=== PATIENT | female | born 1965 | race Caucasian/White ===

== ENCOUNTER → 2016-11-03 | Outpatient (CLI) | payer BC ==
--- NOTE | 2016-11-04 07:42 | MM ---
Reason for exam: additional evaluation requested from prior study. Last mammogram was performed 6 months ago. History: Patient is postmenopausal and is nulliparous. Family history of breast cancer in mother at age 58. Reductions of both breasts, July 2005. Took hormonal contraceptives for 1 year beginning at age 35. Physical Findings: Nurse did not find any significant physical abnormalities on exam. MG 3D Diag Mammo W/Cad CHERYL Bilateral CC and MLO view(s) were taken. Prior study comparison: May 12, 2016, left breast MG 3d diag mammo w/cad LT. November 01, 2015, bilateral MG 3d screening mammo w/cad. The breast tissue is almost entirely fat. There is chronic nodularity bilaterally. No significant new findings when compared with previous films. These results were verbally communicated with the patient and result sheet given to the patient on 11/03/16. ASSESSMENT: Benign, BI-RAD 2 RECOMMENDATION: Routine screening mammogram of both breasts in 1 year.
--- NOTE | 2016-11-04 07:44 | USB ---
Reason for exam: follow-up at short interval from prior study. History: Patient is postmenopausal and is nulliparous. Family history of breast cancer in mother at age 58. Reductions of both breasts, July 2005. Took hormonal contraceptives for 1 year beginning at age 35. US Breast LT Left breast ultrasound includes all four quadrants, the retroareolar region and axilla. Finding demonstrates a 5 x 4 x 5mm oval, cystic lesion at 3 o'clock and a 3 x 2 x 4mm oval, mixed lesion at 4 o'clock. These results were verbally communicated with the patient and result sheet given to the patient on 11/03/16. ASSESSMENT: Probably benign, BI-RAD 3 RECOMMENDATION: Ultrasound of the left breast in 6 months.
== END | disposition home or self-care (01) ==
LOC: RADMAMWWP 14:48
PROVIDERS: ATTEND Family Medicine
DX: R92.8 Other abnormal and inconclusive findings on diagnostic imaging of breast (principal)
CPT/HCPCS: 76641; G0204; G0279

== ENCOUNTER → 2017-01-01 | Outpatient (CLI) | payer BC ==
--- NOTE | 2017-01-01 13:08 | XR ---
EXAMINATION TYPE: XR chest 2V DATE OF EXAM: 01/01/2017 COMPARISON: NONE HISTORY: Shortness of breath TECHNIQUE: Frontal and lateral views of the chest are obtained. FINDINGS: Scattered senescent parenchymal changes noted. Hyperinflation compatible with COPD. No evidence for infiltrate. No evidence for atelectasis. Heart size is stable. Mediastinal structures are stable and grossly unremarkable. No evidence for hilar prominence. Degenerative changes dorsal spine. IMPRESSION: 1. No evidence for acute pulmonary disease.
== END | disposition home or self-care (01) ==
LOC: RADXRMAIN 09:47
PROVIDERS: ATTEND Nurse Practitioner Family
DX: R06.09 Other forms of dyspnea (principal)
CPT/HCPCS: 71020

== ENCOUNTER → 2017-01-12 | Outpatient (CLI) | payer BC ==
--- NOTE | 2017-01-12 12:14 | ECHOF ---
Referral Reason:R00.2 palpitations MEASUREMENTS -------- HEIGHT: 165.1 cm WEIGHT: 111.1 kg BP: RVIDd: 2.7 cm (< 3.3) IVSd: 1.2 cm (0.6 - 1.1) LVIDd: 4.0 cm (3.9 - 5.3) LVPWd: 0.9 cm (0.6 - 1.1) IVSs: 1.3 cm LVIDs: 2.7 cm LVPWs: 1.2 cm LA Diam: 3.3 cm (2.7 - 3.8) LAESV Index (A-L): 26.96 ml/m Ao Diam: 2.9 cm (2.0 - 3.7) AV Cusp: 1.8 cm (1.5 - 2.6) MV EXCURSION: 15.400 mm (> 18.000) MV EF SLOPE: 72 mm/s (70 - 150) EPSS: 0.2 cm MV E Sampson: 0.58 m/s MV DecT: 279 ms MV A Sampson: 0.49 m/s MV E/A Ratio: 1.18 RAP: 5.00 mmHg RVSP: 15.06 mmHg FINDINGS -------- Sinus rhythm. Morbid Obesity There is mild concentric left ventricular hypertrophy. Overall left ventricular systolic function is normal with, an EF between 55 - 60 %. The right ventricle is normal in size. Normal LA size by volume 22+/-6 ml/m2. The right atrial size is normal. The aortic valve is trileaflet, and appears structurally normal. No aortic stenosis or regurgitation. [id number] mitral regurgitation is present. Mild tricuspid regurgitation present. There is no evidence of pulmonary hypertension. The right ventricular systolic pressure, as measured by Doppler, is 15.06mmHg. There is no pulmonic regurgitation present. The aortic root size is normal. There is no pericardial effusion. CONCLUSIONS -------- 1. There is mild concentric left ventricular hypertrophy. 2. Overall left ventricular systolic function is normal with, an EF between 55 - 60 %. 3. The aortic valve is trileaflet, and appears structurally normal. No aortic stenosis or regurgitation. 4. [id number] mitral regurgitation is present. 5. Mild tricuspid regurgitation present. 6. There is no evidence of pulmonary hypertension. 7. The right ventricular systolic pressure, as measured by Doppler, is 15.06mmHg. SCIENTIFIC LINGUIST: Debbie Stevenson RDCS
--- NOTE | 2017-01-13 12:00 | P.STRESS ---
- Stress Test Note Stress Test Results/Findings: Exam Performed: stress test Exam Date: 01/12/17 Reason for Exam: Chest Pain Height: 5 ft 6 in Weight: 111.13 kg Protocol: Jam Stage: 2 Duration of Exercise: 8:50 Resting Heart Rate: 70 Resting Blood Pressure: 124/91 Maximum Achieved Heart Rate: 144 Maximum Achieved Blood Pressure: 198/76 85% PMHR: 143 100% PMHR: 168 METS: 9.3 Technologist Comment: Stress Test Results/Findings: Resting EKG shows normal sinus rhythm with normal DE interval and QRS duration and normal ST-T abuse. This segment depression suggestive ischemia was noted. Arrhythmias are noted. Patient did not complain of any chest pain during the test. Conclusion this stress EKG is not suggestive ischemia. Since exercise tolerance is normal. No dysrhythmias were noted.
--- NOTE | 2017-01-14 10:16 | EST ---
Stress Test Results/Findings: Exam Performed: stress test Exam Date: 01/12/17 Reason for Exam: Chest Pain Height: 5 ft 6 in Weight: 111.13 kg Protocol: Jam Stage: 2 Duration of Exercise: 8:50 Resting Heart Rate: 70 Resting Blood Pressure: 124/91 Maximum Achieved Heart Rate: 144 Maximum Achieved Blood Pressure: 198/76 85% PMHR: 143 100% PMHR: 168 METS: 9.3 Technologist Comment: Stress Test Results/Findings: Resting EKG shows normal sinus rhythm with normal [place] interval and QRS duration and normal ST-T abuse. This segment depression suggestive ischemia was noted. Arrhythmias are noted. Patient did not complain of any chest pain during the test. Conclusion this stress EKG is not suggestive ischemia. Since exercise tolerance is normal. No dysrhythmias were noted. MTDD
== END | disposition home or self-care (01) ==
LOC: RADNMMAIN 10:42
PROVIDERS: ATTEND Family Medicine
DX: I08.1 Rheumatic disorders of both mitral and tricuspid valves (principal)
CPT/HCPCS: 93017; 93306

== ENCOUNTER 2017-10-08 08:00 | Day surgery (SDC) | payer BC ==
[2017-10-05 15:35] VITALS: BMI 42.7
[~2017-10-08 08:00] MED LIST: LACTATED RINGERS 1,000 ML IV SCH; LIDOCAINE 1% 20 ML VIAL (10MG/ML) FOR IV START INTRADERMA PRN
[2017-10-08 08:35] VITALS: RESP 16; TEMP 97.3
[2017-10-08] MEDS ORDERED: PROPOFOL 10 MG/ML 20 ML VIAL IV ONE (09:18)
[2017-10-08] MEDS ORDERED: LIDOCAINE 1% INJ 10MG/ML (20 ML MDV) ONE (09:18)
--- NOTE | 2017-10-08 09:20 | P.GSHP ---
History of Present Illness H&P Date: 10/08/17 Chief Complaint: GERD This a 52-year-old female who's had issues with GERD. Patient states he has reflux of acid and bile when she's in the supine position. She presents today for EGD. She is unable to sleep on the bed. She states she sleeps in a recliner. Past Medical History Past Medical History: Hyperlipidemia, Hypertension Additional Past Medical History / Comment(s): Hx kidney stones History of Any Multi-Drug Resistant Organisms: None Reported Past Surgical History: Breast Surgery Additional Past Surgical History / Comment(s): Br Reduction; colonoscopy Past Anesthesia/Blood Transfusion Reactions: Postoperative Nausea & Vomiting ( PONV) Smoking Status: Never smoker - Past Family History Mother Family Medical History: Cancer Medications and Allergies Home Medications Medication Instructions Recorded Confirmed Type Atorvastatin [Lipitor] 40 mg PO HS 11/02/15 10/08/17 History Losartan Potassium [Cozaar] 100 mg PO DAILY 11/02/15 10/08/17 History Multivitamins, Thera [Multivitamin] 1 tab PO DAILY 11/02/15 10/08/17 History Omeprazole 20 mg PO AC-BRKFST 10/05/17 10/08/17 History Allergies Allergy/AdvReac Type Severity Reaction Status Date / Time No Known Allergies Allergy Verified 10/08/17 08:35 Surgical - Exam Vital Signs Temp Pulse Resp BP Pulse Ox 97.3 F L 73 16 132/65 97 10/08/17 08:34 10/08/17 08:34 10/08/17 08:34 10/08/17 08:34 10/08/17 08:34 - General well developed - Eyes PERRL - ENT normal pinna - Neck no masses - Respiratory normal expansion - Cardiovascular Rhythm: regular - Abdomen Abdomen: soft, non tender Assessment and Plan Assessment: GERD. We'll perform EGD.
--- NOTE | 2017-10-08 09:31 | P.OP ---
Date of Procedure: 10/08/17 Preoperative Diagnosis: GERD Postoperative Diagnosis: Antral gastritis No evidence of hiatal hernia Mild esophagitis Procedure(s) Performed: EGD Anesthesia: MAC Surgeon: Sergey Crisostomo Pathology: other (Antrum) Condition: stable Disposition: PACU Description of Procedure: The patient's placed on the endoscopy table in the lateral position. She received IV sedation. The gastroscope placed oropharynx passed in the esophagus the scope was then placed through the pylorus first second portion of duodenum appeared normal. Scope was then brought back the antrum this appeared mildly inflamed. A biopsy was performed. The scope was then retroflexed and the remainder of the stomach appeared normal. There was no significant hiatal hernia. The GE junction was at 39 cm. The distal esophagus was mildly inflamed a biopsies performed. The proximal esophagus appeared normal. The scope was withdrawn for patient.
[2017-10-08 09:50] VITALS: BP 131/76; PULSE 70
== END 2017-10-08 10:13 | disposition home or self-care (01) ==
LOC: ORWHC2ENDO 08:00
PROVIDERS: ATTEND Surgery
DX: K29.50 Unspecified chronic gastritis without bleeding (principal); K21.0 Gastro-esophageal reflux disease with esophagitis; E78.5 Hyperlipidemia, unspecified; I10 Essential (primary) hypertension; Z87.442 Personal history of urinary calculi; Z79.899 Other long term (current) drug therapy
CPT/HCPCS: 88305; 43239; J2001; J2704

== ENCOUNTER → 2017-12-21 | Outpatient (CLI) | payer BC ==
--- NOTE | 2017-12-22 14:35 | MM ---
Reason for exam: screening (asymptomatic). Last mammogram was performed 1 year and 2 months ago. History: Patient is postmenopausal and is nulliparous. Family history of breast cancer in mother at age 58. Reductions of both breasts, July 2005. Took hormonal contraceptives for 1 year beginning at age 35. Physical Findings: A clinical breast exam by your physician is recommended on an annual basis and results should be correlated with mammographic findings. MG 3D Screening Mammo W/Cad Bilateral CC and MLO view(s) were taken. XCCL view(s) were taken of the right breast. CV view(s) were taken of the left breast. Prior study comparison: November 03, 2016, bilateral MG 3d diag mammo w/cad CHERYL. May 12, 2016, left breast MG 3d diag mammo w/cad LT. There are scattered fibroglandular densities. Finding #1: There is a 8 mm microlobulated round mass in the anterior, central position of the left breast. Finding #2: There are typically benign round calcifications in both breasts. There is a chronic nodularity bilaterally. New finding and increase in size, questionable posterior new lobulation since November 03, 2016. ASSESSMENT: Incomplete: need additional imaging evaluation, BI-RAD 0 RECOMMENDATION: Ultrasound of the left breast. [facility] will attempt to contact patient to return for ultrasound.
== END | disposition home or self-care (01) ==
LOC: RADMAMWWP 15:47
PROVIDERS: ATTEND Family Medicine
DX: Z12.31 Encounter for screening mammogram for malignant neoplasm of breast (principal)
CPT/HCPCS: 77063; 77067

== ENCOUNTER → 2017-12-25 | Outpatient (CLI) | payer BC ==
--- NOTE | 2017-12-25 07:59 | USB ---
Reason for exam: additional evaluation requested from abnormal screening. History: Patient is postmenopausal and is nulliparous. Family history of breast cancer in mother at age 58. Reductions of both breasts, July 2005. Took hormonal contraceptives for 1 year beginning at age 35. Physical Findings: Nurse did not find any significant physical abnormalities on exam. US Breast Workup LT Left complete breast ultrasound includes all four quadrants, the retroareolar region and axilla. Finding demonstrates a 0.6 x 0.6 x 0.7cm cystic lesion at 3 o'clock, increased through transmission. These results were verbally communicated with the patient and result sheet given to the patient on 12/25/17. ASSESSMENT: Benign, BI-RAD 2 RECOMMENDATION: Return to routine screening mammogram schedule for both breasts.
== END | disposition home or self-care (01) ==
LOC: RADUSWWP 06:50
PROVIDERS: ATTEND Family Medicine
DX: R92.8 Other abnormal and inconclusive findings on diagnostic imaging of breast (principal)

== ENCOUNTER → 2018-03-04 | Outpatient (CLI) | payer BC ==
--- NOTE | 2018-03-04 11:46 | USB ---
Reason for exam: clinical finding. History: Patient is postmenopausal and is nulliparous. Family history of breast cancer in mother at age 58. Reductions of both breasts, July 2005. Took hormonal contraceptives for 1 year beginning at age 35. Indicated problem(s): palpable abnormality in the left breast. Physical Findings: Nurse Summary: patient states palpable present 1 week, round, mobile 0.5cm (nurse ronan). US Breast LT Left complete breast ultrasound includes all four quadrants, the retroareolar region and axilla. Finding demonstrates a 1.4 x 0.7 x 0.3cm oval, vague, hypoechoic tissue at 11 o'clock, no cystic or solid lesion seen greater than 0.50cm. These results were verbally communicated with the patient and result sheet given to the patient on 03/04/18. ASSESSMENT: Benign, BI-RAD 2 RECOMMENDATION: Return to routine screening mammogram schedule for both breasts. Back on schedule. Manage patient on a clinical basis.
== END | disposition home or self-care (01) ==
LOC: RADUSWWP 09:24
PROVIDERS: ATTEND Family Medicine
DX: N63.22 Unspecified lump in the left breast, upper inner quadrant (principal)

== ENCOUNTER 2018-03-20 09:28 | Observation (INO) | payer BC ==
[2018-03-20] MEDS ORDERED: ASPIRIN 81 MG PO STA (09:40)
[2018-03-20] MEDS ORDERED: NITROGLYCERIN OINT 1 INCH/GM PACKET TOPICAL STA (09:40)
--- NOTE | 2018-03-20 09:43 | ED ---
General Adult HPI - General Chief complaint: Chest Pain Stated complaint: Chest pain Time Seen by Provider: 03/20/18 09:30 Source: patient, RN notes reviewed Mode of arrival: wheelchair Limitations: no limitations - History of Present Illness Initial comments: This is a 52-year-old female with past history significant for high blood pressure and high cholesterol. Patient states she woke up with a pain in her chest she states is centrally located also is made her short of breath and nauseated. Patient states the pain does not radiate anywhere but she's not had a pain like this in the past. Patient states she has a strong family history of heart disease her father at 52 years old from heart attack. Patient denies any palpitations. Patient denies any diaphoretic episodes. Patient denies any lightheadedness dizziness or near-syncopal episode. Patient denies any numbness or weakness. Patient states she has no abdominal pain she denies any vomiting or diarrhea. Patient denies any recent fever chills. Patient denies any leg swelling or calf tenderness. - Related Data Home Medications Medication Instructions Recorded Confirmed Atorvastatin [Lipitor] 40 mg PO HS 11/02/15 10/08/17 Losartan Potassium [Cozaar] 100 mg PO DAILY 11/02/15 10/08/17 Multivitamins, Thera [Multivitamin] 1 tab PO DAILY 11/02/15 10/08/17 Omeprazole 20 mg PO AC-BRKFST 10/05/17 10/08/17 Allergies Allergy/AdvReac Type Severity Reaction Status Date / Time No Known Allergies Allergy Verified 03/20/18 09:32 Review of Systems ROS Statement: Those systems with pertinent positive or pertinent negative responses have been documented in the HPI. ROS Other: All systems not noted in ROS Statement are negative. Past Medical History Past Medical History: Hyperlipidemia, Hypertension Additional Past Medical History / Comment(s): Hx kidney stones History of Any Multi-Drug Resistant Organisms: None Reported Past Surgical History: Breast Surgery Additional Past Surgical History / Comment(s): Br Reduction; colonoscopy Past Anesthesia/Blood Transfusion Reactions: Postoperative Nausea & Vomiting ( PONV) Past Psychological History: No Psychological Hx Reported Smoking Status: Never smoker Past Alcohol Use History: None Reported Past Drug Use History: None Reported - Past Family History Mother Family Medical History: Cancer General Exam - General Exam Comments Initial Comments: GENERAL: Patient is well-developed and well-nourished. Patient is nontoxic and well- hydrated and is in mild distress. ENT: Neck is soft and supple. No significant lymphadenopathy is noted. Oropharynx is clear. Moist mucous membranes. Neck has full range of motion without eliciting any pain. EYES: The sclera were anicteric and conjunctiva were pink and moist. Extraocular movements were intact and pupils were equal round and reactive to light. Eyelids were unremarkable. PULMONARY: Unlabored respirations. Good breath sounds bilaterally. No audible rales rhonchi or wheezing was noted. CARDIOVASCULAR: There is a regular rate and rhythm without any murmurs gallops or rubs. ABDOMEN: Soft and nontender with normal bowel sounds. No palpable organomegaly was noted. There is no palpable pulsatile mass. SKIN: Skin is clear with no lesions or rashes and otherwise unremarkable. NEUROLOGIC: Patient is alert and oriented x3. Cranial nerves II through XII are grossly intact. Motor and sensory are also intact. Normal speech, volume and content. Symmetrical smile. MUSCULOSKELETAL: Normal extremities with adequate strength and full range of motion. No lower extremity swelling or edema. No calf tenderness. LYMPHATICS: No significant lymphadenopathy is noted PSYCHIATRIC: Normal psychiatric evaluation. Limitations: no limitations Course Vital Signs 03/20/18 03/20/18 03/20/18 09:30 09:52 10:25 Temperature 98.3 F Pulse Rate 59 L 57 L 70 Respiratory 20 22 20 Rate Blood Pressure 178/83 143/78 121/71 O2 Sat by Pulse 99 100 99 Oximetry 03/20/18 10:53 Temperature Pulse Rate 65 Respiratory 20 Rate Blood Pressure 129/72 O2 Sat by Pulse 98 Oximetry Medical Decision Making - Medical Decision Making EKG shows sinus bradycardia 50 bpm MN interval is on a 68 QRSs 80 QT interval 36 QTC is 378. Patient's EKG shows no ST segment elevation or depression Chest x-ray shows no acute abnormality. Patient stated the Nitropaste significantly reduced her symptoms. I started the patient on heparin because of the unstable angina. I spoke with [facility] hospitalist agreed to admit the patient admitted the patient I continue the heparin Nitropaste and aspirin on the floor. I consult to cardiology. - Lab Data Result diagrams: 03/20/18 09:47 03/20/18 09:47 Lab Results 10/06/18 10/06/18 10/06/18 Range/Units 09:47 09:47 09:47 WBC 7.9 (3.8-10.6) k/uL RBC 4.99 (3.80-5.40) m/uL Hgb 14.7 (11.4-16.0) gm/dL Hct 43.4 (34.0-46.0) % MCV 87.0 (80.0-100.0) fL MCH 29.4 (25.0-35.0) pg MCHC 33.8 (31.0-37.0) g/dL RDW 12.8 (11.5-15.5) % Plt Count 244 (150-450) k/uL Neutrophils % 71 % Lymphocytes % 18 % Monocytes % 6 % Eosinophils % 3 % Basophils % 0 % Neutrophils # 5.6 (1.3-7.7) k/uL Lymphocytes # 1.4 (1.0-4.8) k/uL Monocytes # 0.5 (0-1.0) k/uL Eosinophils # 0.2 (0-0.7) k/uL Basophils # 0.0 (0-0.2) k/uL PT (9.0-12.0) sec INR (<1.2) APTT (22.0-30.0) sec Sodium 144 (137-145) mmol/L Potassium 3.7 (3.5-5.1) mmol/L Chloride 103 (98-107) mmol/L Carbon Dioxide 33 H (22-30) mmol/L Anion Gap 8 mmol/L BUN 13 (7-17) mg/dL Creatinine 0.93 (0.52-1.04) mg/dL Est GFR (CKD-EPI)AfAm 82 (>60 ml/min/1.73 sqM) Est GFR (CKD-EPI)NonAf 71 (>60 ml/min/1.73 sqM) Glucose 102 H (74-99) mg/dL Calcium 9.7 (8.4-10.2) mg/dL Magnesium 1.8 (1.6-2.3) mg/dL Total Bilirubin 0.9 (0.2-1.3) mg/dL AST 53 H (14-36) U/L ALT 56 H (9-52) U/L Alkaline Phosphatase 109 (38-126) U/L Total Creatine Kinase 144 H (30-135) U/L CK-MB (CK-2) 1.9 (0.0-2.4) ng/mL CK-MB (CK-2) Rel Index 1.3 Troponin I <0.012 (0.000-0.034) ng/mL Total Protein 7.4 (6.3-8.2) g/dL Albumin 4.2 (3.5-5.0) g/dL 03/20/18 Range/Units 09:47 WBC (3.8-10.6) k/uL RBC (3.80-5.40) m/uL Hgb (11.4-16.0) gm/dL Hct (34.0-46.0) % MCV (80.0-100.0) fL MCH (25.0-35.0) pg MCHC (31.0-37.0) g/dL RDW (11.5-15.5) % Plt Count (150-450) k/uL Neutrophils % % Lymphocytes % % Monocytes % % Eosinophils % % Basophils % % Neutrophils # (1.3-7.7) k/uL Lymphocytes # (1.0-4.8) k/uL Monocytes # (0-1.0) k/uL Eosinophils # (0-0.7) k/uL Basophils # (0-0.2) k/uL PT 10.1 (9.0-12.0) sec INR 1.0 (<1.2) APTT 23.6 (22.0-30.0) sec Sodium (137-145) mmol/L Potassium (3.5-5.1) mmol/L Chloride (98-107) mmol/L Carbon Dioxide (22-30) mmol/L Anion Gap mmol/L BUN (7-17) mg/dL Creatinine (0.52-1.04) mg/dL Est GFR (CKD-EPI)AfAm (>60 ml/min/1.73 sqM) Est GFR (CKD-EPI)NonAf (>60 ml/min/1.73 sqM) Glucose (74-99) mg/dL Calcium (8.4-10.2) mg/dL Magnesium (1.6-2.3) mg/dL Total Bilirubin (0.2-1.3) mg/dL AST (14-36) U/L ALT (9-52) U/L Alkaline Phosphatase (38-126) U/L Total Creatine Kinase (30-135) U/L CK-MB (CK-2) (0.0-2.4) ng/mL CK-MB (CK-2) Rel Index Troponin I (0.000-0.034) ng/mL Total Protein (6.3-8.2) g/dL Albumin (3.5-5.0) g/dL Critical Care Time Critical Care Time: Yes Total Critical Care Time: 35 Disposition Clinical Impression: Unstable angina pectoris Disposition: ADMITTED IP TO THIS HOSP Is patient prescribed a controlled substance at d/c from ED?: No Referrals: Judith Shepard MD [Primary Care Provider] - 1-2 days Time of Disposition: 11:00
[2018-03-20 10:01] LABS: Basophils % (A) 0 %; Eosinophils # (A) 0.2 k/uL (0-0.7); Eosinophils % (A) 3 %; HCT 43.4 % (34.0-46.0); HGB 14.7 gm/dL (11.4-16.0); Lymphocytes # (A) 1.4 k/uL (1.0-4.8); Lymphocytes % (A) 18 %; MCH 29.4 pg (25.0-35.0); MCHC 33.8 g/dL (31.0-37.0); Mean Platelet Volume 7.6; Monocytes # (A) 0.5 k/uL (0-1.0); Monocytes % (A) 6 %; Neutrophils # (A) 5.6 k/uL (1.3-7.7); Neutrophils % (A) 71 %; Platelet Count 244 k/uL (150-450); RBC 4.99 m/uL (3.80-5.40); RDW 12.8 % (11.5-15.5); WBC 7.9 k/uL (3.8-10.6)
[2018-03-20 10:11] LABS: Albumin 4.2 g/dL (3.5-5.0); Calcium 9.7 mg/dL (8.4-10.2); Magnesium 1.8 mg/dL (1.6-2.3); Potassium 3.7 mmol/L (3.5-5.1); Total Bilirubin 0.9 mg/dL (0.2-1.3); Total Protein 7.4 g/dL (6.3-8.2)
[2018-03-20] MEDS ORDERED: HEPARIN SODIUM,PORCINE 5,000 UNIT/ML 1 ML VIAL IV ONE (10:24)
--- NOTE | 2018-03-20 10:28 | XR ---
EXAMINATION TYPE: XR chest 2V DATE OF EXAM: 03/20/2018 HISTORY: Chest Pain. REFERENCE: Previous study dated 01/01/2017. FINDINGS: Heart size upper limits of normal. The lungs are clear. Pleural spaces are clear. IMPRESSION: BORDERLINE CARDIOMEGALY.
[2018-03-20 10:29] LABS: Creatine Kinase 144 U/L (30-135)
[2018-03-20 10:42] LABS: Creatine Kinase MB 1.9 ng/mL (0.0-2.4); Troponin I <0.012 ng/mL (0.000-0.034)
[2018-03-20 10:46] LABS: Partial Thromboplastin Time 23.6 sec (22.0-30.0); Prothrombin Time 10.1 sec (9.0-12.0)
[2018-03-20] MEDS: HEPARIN SOD,PORK IN 0.45% NACL 25,000 UNIT in 0.45% NACL 1 500ML.BAG IV SCH (10:55)
[2018-03-20] MEDS ORDERED: NITROGLYCERIN SL TABS 0.4 MG TAB SUBLINGUAL PRN (11:01)
[2018-03-20] MEDS ORDERED: NAPROXEN 250 MG TAB PO PRN (13:35)
[2018-03-20] MEDS: ONDANSETRON 4 MG/2 ML VIAL IVP PRN ×2 (14:58→20:05)
[2018-03-20] MEDS ORDERED: ACETAMINOPHEN TAB 325 MG TAB PO PRN (14:59)
[2018-03-20] MEDS: NITROGLYCERIN OINT 1 INCH/GM PACKET TOPICAL SCH ×2 (15:01→18:25)
[2018-03-20 15:50] LABS: Creatine Kinase 105 U/L (30-135)
[2018-03-20 16:02] LABS: Creatine Kinase MB 1.3 ng/mL (0.0-2.4); Troponin I <0.012 ng/mL (0.000-0.034)
[2018-03-20] MEDS ORDERED: ATORVASTATIN 40 MG TAB PO SCH (21:00)
--- NOTE | 2018-03-20 22:11 | HP ---
HISTORY AND PHYSICAL DATE OF SERVICE: 03/20/2018 CHIEF COMPLAINT: Chest pain. HISTORY OF PRESENT ILLNESS: This 52-year-old woman with a past medical history of multiple medical problems include hypertension, hyperlipidemia, history of kidney stones, history of breast surgery being followed by Dr. Judith Shepard in the outpatient setting also had a strong family history of heart disease. The patient's apparently father had coronary disease at age of 52. Currently the patient was admitted with complaints of sudden onset severe chest pressure, felt in the anterior part and also radiated to the back. The patient denied any diaphoretic episodes. No history of lightheadedness or nausea, vomiting, also diarrhea. The patient came to [facility] and was admitted for further evaluation treatment. Cardiology evaluation in progress at this time. An EKG done at the ER showed sinus bradycardia. Heart rate is [address] changes. Otherwise, troponins are negative at this time. There is no history of fever, rigors. No headache, loss of consciousness, seizures. PAST MEDICAL HISTORY: Hypertension, hyperlipidemia, history of kidney stones, breast surgery. MEDICATIONS: Prior to admission include home medications are: 1. Aleve 440 mg p.o. b.i.d. 2. Calcium 600 mg p.o. daily. 3. Omeprazole 20 mg with breakfast. 4. Multivitamins 1 p.o. daily. 5. Cozaar 100 mg. 6. Lipitor 40 mg q.h.s. ALLERGIES: None. FAMILY HISTORY: History of cancer in the family. SOCIAL HISTORY: No history of smoking or alcohol intake. REVIEW OF SYSTEMS: ENT: No diminished hearing or vision. CARDIOVASCULAR: As mentioned earlier. GI: No nausea. : No dysuria. NERVOUS SYSTEM: No numbness or weakness. ALLERGY/IMMUNOLOGY: No history of asthma or hayfever. MUSCULOSKELETAL: As mentioned earlier. HEMATOLOGY/ONCOLOGY: No history of anemia. ENDOCRINE: No history of diabetes, hypothyroidism. CONSTITUTIONAL: As mentioned earlier. DERMATOLOGY: Negative. RHEUMATOLOGY: Negative. PSYCHIATRY: As mentioned earlier. PHYSICAL EXAMINATION: Alert, oriented x3. Pulse 67, blood pressure 158/90, respiration 18, temperature 98.2, pulse ox 98% on 2 L. HEENT: Conjunctivae normal. Oral mucosa moist. Neck is no jugular venous distention. No carotid bruit. No lymph node enlargement. CARDIOVASCULAR: S1, S2 muffled. RESPIRATORY: Breath sounds diminished in the bases. No rhonchi, no crackles. ABDOMEN: Soft, obese, nontender. No mass palpable. LEGS: No edema, no swelling. NERVOUS SYSTEM: Higher functions as mentioned. Moves all 4 limbs. No focal motor signs. LYMPHATICS: No lymphadenopathy in the neck, axillae, groin. SKIN: No ulcer, rash or bleeding. LAB STUDIES: WBC 11.7, hemoglobin 14.7, sodium 44, potassium 3.7, AST is 53, ALT is 56, alkaline phosphatase is 144. ASSESSMENT: 1. Chest pain, possible unstable angina. 2. Increased AST and ALT, possibly hepatitis. 3. Obesity with body mass of 45.5. 4. Family history of coronary artery disease. 5. Hypertension. 6. Hyperlipidemia. 7. History of nephrolithiasis. 8. History of breast surgery. RECOMMENDATIONS AND DISCUSSION: This 52-year-old woman who presented with multiple complex medical issues, monitor the patient closely. Continue the current management and symptomatic treatment. Unstable angina protocol. Otherwise I would recommend Cardiology consultation, possible cardiac cath versus stress test. Prognosis guarded because of multiple complex medical issues. Further recommendations to follow. Copy of dictation forwarded to Dr. Judith Shepard who is the primary physician. MMODL / IJN: [id number] / MTDD
[2018-03-20 22:46] LABS: Creatine Kinase 96 U/L (30-135)
--- NOTE | 2018-03-20 22:47 | CONS ---
CONSULTATION CHIEF COMPLAINT: Chest pain. Chio is a 52-year-old lady who works as a is/it project manager, has history of hypertension and dyslipidemia who presented to hospital complaining of chest pain. She states that she was at her work today, went home, had episodes of what she describes as chest pressure that radiated to her back associated with some nausea. It is moderate intensity came on at rest without clear-cut relieving or exacerbating factors. EKG does not reveal ischemic changes. The first set of troponin is negative. White cell count is normal at 7.9. There is no prior cardiac history. Her coronary risk/social in the form of hypertension, dyslipidemia, and strong family history of premature coronary artery disease. The patient's chest discomfort improved with the nitroglycerin paste. PAST MEDICAL HISTORY: Significant for hypertension and dyslipidemia. MEDICATIONS: Include Cozaar 100 daily, Lipitor 40 daily, omeprazole. ALLERGIES: No known drug allergies. FAMILY HISTORY: Significant for premature coronary artery disease. SOCIAL HISTORY: Negative for current smoking, EtOH abuse, or drug abuse. REVIEW OF SYSTEMS: HEENT is unremarkable. CARDIAC: As described above. RESPIRATORY: Negative. GI: Negative. GENITOURINARY: Negative. ALLERGY/IMMUNOLOGY: Negative. SKIN: Negative. MUSCULOSKELETAL: Significant for arthritis. PSYCHOSOCIAL: Negative. ENDOCRINE: Negative. HEMATOLOGIC: Negative. CONSTITUTIONAL: Negative. ONCOLOGICAL: Negative. The rest of the system review is not relevant. EXAM: Patient is comfortable at rest. Vital signs are stable. There is no jugular venous distention. Chest exam reveals good air entry bilaterally. Heart exam reveals first and second heart sounds. No gallop. No murmur. No rub. Abdomen is soft, nontender. Exam of extremities did not reveal any edema. Peripheral pulses are felt. EKG does not reveal ischemic changes. LABS: Have been reviewed as well as the chest x-ray. ASSESSMENT: Unstable angina. PLAN: Patient's chest discomfort is suggestive of angina, has strong and multiple coronary risk factors. I am going to schedule her for a cardiac catheterization on Thursday. In the meantime, treat her with aspirin, nitrates, beta-blockers and intravenous heparin. MMODL / IJN: [id number] /
[2018-03-20 22:57] LABS: Creatine Kinase MB 1.4 ng/mL (0.0-2.4); Troponin I <0.012 ng/mL (0.000-0.034)
[2018-03-21] MEDS: NITROGLYCERIN OINT 1 INCH/GM PACKET TOPICAL SCH ×4 (04:04→17:44)
[2018-03-21 05:47] LABS: Cholesterol 149 mg/dL (<200); HDL Cholesterol 58 mg/dL (40-60); LDL Cholesterol,Calculated 75 mg/dL (0-99); Triglycerides 78 mg/dL (<150)
[2018-03-21] MEDS: HEPARIN SOD,PORK IN 0.45% NACL 25,000 UNIT in 0.45% NACL 1 500ML.BAG IV SCH (06:22)
[2018-03-21] MEDS ORDERED: ATORVASTATIN 80 MG TAB PO STA (07:50)
[2018-03-21] MEDS ORDERED: ASPIRIN 325 MG TAB PO STA (07:50)
[2018-03-21] MEDS ORDERED: ALPRAZolam 0.5 MG TAB PO PRN (07:50)
[2018-03-21] MEDS ORDERED: ALPRAZolam 0.25 MG TAB PO PRN (07:50)
[2018-03-21] MEDS ORDERED: ASPIRIN 325 MG TAB PO SCH (09:00)
[2018-03-21] MEDS: CALCIUM CARBONATE 500 MG CHEWABLE PO SCH (09:04)
[2018-03-21] MEDS: PANTOPRAZOLE 40 MG TABLET PO SCH (09:04)
[2018-03-21] MEDS: LOSARTAN 50 MG TAB PO SCH (09:04)
--- NOTE | 2018-03-21 09:10 | CONS ---
CONSULTATION Chio is a 52-year-old lady who is admitted to the hospital with unstable angina. This morning she is doing well. Has remained chest pain-free. Cardiac enzymes have been negative. EKG did not reveal any ischemic changes. Her LDL cholesterol is 75. Her coronary risk factors are in the form of hypertension and dyslipidemia. There are no known drug allergies. FAMILY HISTORY: Negative for premature coronary artery disease. SOCIAL HISTORY: Negative for smoking, EtOH abuse, or drug abuse. EXAM: She is comfortable at rest. Vital signs are stable. There is no jugular venous distention. Carotid upstroke is normal. There is no bruit. Chest exam reveals good air entry bilaterally. Heart exam reveals first and second heart sounds. No gallop. Abdomen is soft, nontender. Exam of extremities did not reveal edema. Peripheral pulses are felt. ASSESSMENT: Unstable angina. PLAN: Patient will undergo cardiac catheterization by me tomorrow and we will decide on further course of action. She understands risks, benefits and alternatives. MMODL / IJN: [id number] /
--- NOTE | 2018-03-21 10:11 | ECHOF ---
Referral Reason:chest pain MEASUREMENTS -------- HEIGHT: 165.1 cm WEIGHT: 127.5 kg BP: RVIDd: 2.9 cm (< 3.3) IVSd: 1.1 cm (0.6 - 1.1) LVIDd: 4.7 cm (3.9 - 5.3) LVPWd: 1.2 cm (0.6 - 1.1) IVSs: 1.3 cm LVIDs: 3.4 cm LVPWs: 1.1 cm LA Diam: 3.5 cm (2.7 - 3.8) Ao Diam: 2.6 cm (2.0 - 3.7) AV Cusp: 1.8 cm (1.5 - 2.6) LA Diam: 4.1 cm (2.7 - 3.8) MV EXCURSION: 17.701 mm (> 18.000) MV EF SLOPE: 113 mm/s (70 - 150) EPSS: 0.3 cm MV E Sampson: 0.64 m/s MV DecT: 155 ms MV A Sampson: 0.59 m/s MV E/A Ratio: 1.07 RAP: 5.00 mmHg RVSP: 28.71 mmHg FINDINGS -------- Sinus rhythm. Morbid Obesity This was a techncally difficult study with suboptimal views, , Lumason utilized for enhancement of im ages. The left ventricular size is normal. There is borderline concentric left ventricular hypertrophy. Overall left ventricular systolic function is normal with, an EF between 55 - 60 %. The right ventricle is normal in size. The left atrial size is normal. The right atrial size is normal. 5.0mg OF Lumason UTLIZED: 2 OR MORE WALL SEGMENTS NOT VISUALIZED. The aortic valve is trileaflet, and appears structurally normal. No aortic stenosis or regurgitation. Mild mitral annular calcification present. Mild mitral regurgitation is present. Mild tricuspid regurgitation present. There is no evidence of pulmonary hypertension. The right v entricular systolic pressure, as measured by Doppler, is 28.71mmHg. There is no pulmonic regurgitation present. The aortic root size is normal. There is no pericardial effusion. CONCLUSIONS -------- 1. Morbid Obesity 2. This was a techncally difficult study with suboptimal views, , Lumason utilized for enhancement of images. 3. The left ventricular size is normal. 4. There is borderline concentric left ventricular hypertrophy. 5. Overall left ventricular systolic function is normal with, an EF between 55 - 60 %. 6. The right ventricle is normal in size. 7. The left atrial size is normal. 8. The right atrial size is normal. 9. 5.0mg OF Lumason UTLIZED: 2 OR MORE WALL SEGMENTS NOT VISUALIZED. 10. The aortic valve is trileaflet, and appears structurally normal. No aortic stenosis or regurgitat ion. 11. Mild mitral annular calcification present. 12. Mild mitral regurgitation is present. 13. Mild tricuspid regurgitation present. 14. There is no evidence of pulmonary hypertension. 15. The right ventricular systolic pressure, as measured by Doppler, is 28.71mmHg. 16. There is no pulmonic regurgitation present. 17. The aortic root size is normal. 18. There is no pericardial effusion. FUEL AGENT: Debbie Stevenson RDCS
[2018-03-21] MEDS: MULTIVITAMINS, THERA 1 EACH TAB PO SCH (11:51)
[2018-03-21 16:43] LABS: Appearance,Urine Clear (Clear); Bilirubin,Urine Negative (Negative); Blood,Urine Negative (Negative); Color,Urine Yellow; Glucose,Urine (UA) Negative (Negative); Ketones,Urine Negative (Negative); Leukocyte Esterase,Urine Negative (Negative); Nitrite,Urine Negative (Negative); PH, Urine 5.5 (5.0-8.0); Protein,Urine Negative (Negative); Specific Gravity,Urine 1.016 (1.001-1.035); Urobilinogen,Urine <2.0 mg/dL (<2.0)
--- NOTE | 2018-03-21 18:13 | PN ---
PROGRESS NOTE DATE OF SERVICE: 03/21/2018 This 52-year-old woman was admitted with chest pain, had significant family history. Cardiology saw the patient and recommended cardiac catheterization. No chest pain. No palpitations. No fever. PHYSICAL EXAM: Alert and oriented x3. Pulse 67, blood pressure 160/84, respiration 18, temperature 97.8, pulse ox 94% on room air. HEENT: Conjunctivae normal. Oral mucosa moist. Neck is no jugular venous distention. No carotid bruit. No lymph node enlargement. CARDIOVASCULAR: S1, S2 muffled. RESPIRATORY: Breath sounds diminished in the bases. No rhonchi, no crackles. ABDOMEN: Soft, nontender. No mass palpable. LEGS: No edema, no swelling. NERVOUS SYSTEM: Higher functions as mentioned earlier. Moves all four limbs. No focal motor deficits. LYMPHATICS: No lymphadenopathy in the neck, axillae, groin. SKIN: No ulcer, rash or bleeding. LABS: At this time shows APTT 60.8. Troponins are negative. AST is 53 and ALT 56. ASSESSMENT: 1. Chest pain, possible unstable angina. 2. Increased AST and ALT, possibly hepatitis. 3. Obesity with body mass 45.5. 4. Family history of coronary artery disease. 5. Hypertension. 6. Hyperlipidemia. 7. History of nephrolithiasis. 8. History of breast surgery. RECOMMENDATIONS AND DISCUSSION: I recommend to continue current management, continue monitoring, symptomatic treatment. Otherwise at this time I recommend repeat labs and cardiology evaluation, possible cardiac cath. Guarded prognosis. Further recommendations to follow. MMODL / IJN: [id number] /
[2018-03-21] MEDS ORDERED: SODIUM CHLORIDE 0.9% 1,000 ML in EMPTY BAG 1 BAG IV ONE (21:00)
[2018-03-22] MEDS: NITROGLYCERIN OINT 1 INCH/GM PACKET TOPICAL SCH ×4 (01:30→18:19)
[2018-03-22] MEDS ORDERED: ATORVASTATIN 80 MG TAB PO STA (06:22)
[2018-03-22] MEDS: LOSARTAN 50 MG TAB PO SCH (06:27)
[2018-03-22] MEDS: ASPIRIN 325 MG TAB PO SCH (07:38)
[2018-03-22 08:24] LABS: Basophils % (A) 1 %; Eosinophils # (A) 0.2 k/uL (0-0.7); Eosinophils % (A) 4 %; HCT 36.9 % (34.0-46.0); HGB 12.4 gm/dL (11.4-16.0); Lymphocytes # (A) 1.6 k/uL (1.0-4.8); Lymphocytes % (A) 30 %; MCH 29.6 pg (25.0-35.0); MCHC 33.6 g/dL (31.0-37.0); MCV 88.2 fL (80.0-100.0); Mean Platelet Volume 7.7; Monocytes # (A) 0.3 k/uL (0-1.0); Monocytes % (A) 6 %; Neutrophils # (A) 3.1 k/uL (1.3-7.7); Neutrophils % (A) 57 %; Platelet Count 215 k/uL (150-450); RBC 4.18 m/uL (3.80-5.40); RDW 12.8 % (11.5-15.5); WBC 5.4 k/uL (3.8-10.6)
[2018-03-22] MEDS ORDERED: IV FLUID CONTINUATION 1,000 ML IV ONE (08:40)
[2018-03-22 08:44] LABS: ALT 212 U/L (9-52); AST 94 U/L (14-36); Albumin 3.3 g/dL (3.5-5.0); Alkaline Phosphatase 138 U/L (38-126); Anion Gap 5 mmol/L; Blood Urea Nitrogen 6 mg/dL (7-17); Calcium 8.6 mg/dL (8.4-10.2); Carbon Dioxide 28 mmol/L (22-30); Chloride 110 mmol/L (98-107); Glucose 95 mg/dL (74-99); Sodium 143 mmol/L (137-145); Total Bilirubin 0.7 mg/dL (0.2-1.3)
[2018-03-22] MEDS ORDERED: fentaNYL (PF) 50 MCG/ML 2 ML AMP ONE (08:44)
[2018-03-22] MEDS ORDERED: LIDOCAINE 1% INJ 10MG/ML (20 ML MDV) ONE (08:44)
[2018-03-22] MEDS ORDERED: MIDAZOLAM 2 MG/2 ML VIAL ONE (08:44)
[2018-03-22] MEDS ORDERED: LIDOCAINE 1% INJ 10MG/ML (20 ML MDV) SQ ONE (08:48)
[2018-03-22] MEDS ORDERED: MIDAZOLAM 2 MG/2 ML VIAL IV ONE (08:48)
[2018-03-22] MEDS ORDERED: fentaNYL (PF) 50 MCG/ML 2 ML AMP IV ONE (08:48)
[2018-03-22] MEDS ORDERED: IOPAMIDOL-370 125ML BTL INJ ONE (08:58)
[2018-03-22] MEDS ORDERED: RX INFO: IV CONTRAST WAS GIVEN 1 EACH MISC MISCELLANE PRN (09:10)
[2018-03-22] MEDS: SODIUM CHLORIDE 0.9% 1,000 ML IV SCH (09:15)
[2018-03-22] MEDS: CALCIUM CARBONATE 500 MG CHEWABLE PO SCH (10:01)
[2018-03-22] MEDS: PANTOPRAZOLE 40 MG TABLET PO SCH (10:01)
--- NOTE | 2018-03-22 10:38 | CC ---
CARDIAC CATHETERIZATION REPORT INDICATION: Unstable angina. PROCEDURE NOTE: After obtaining informed consent, left heart catheterization and coronary angiogram are performed via right femoral artery using standard Cristhian catheters. Patient tolerated the procedure well without any obvious immediate complications. A femoral angiogram was performed and Angio-Seal was deployed for hemostasis. Patient received moderate conscious sedation. Total sedation time was 15 minutes. FINDINGS: 1. HEMODYNAMICS: Left ventricular end-diastolic pressure is 8 to 12 mm. There is no significant gradient across the aortic valve. 2. LEFT VENTRICULOGRAM: Left ventriculogram is not performed. 3. ANGIOGRAPHIC DATA: 4. LEFT MAIN CORONARY ARTERY: Left main coronary artery is a normal-sized vessel and is free of stenosis. Divides into left anterior descending coronary artery and circumflex coronary artery. LAD and its branches, circumflex coronary artery and its branches are free of significant stenosis. Circumflex is a nondominant vessel. Right coronary artery is a large dominant vessel and is free of significant stenosis. CONCLUSION: 1. Normal coronary arteries. 2. Normal left ventricular end-diastolic pressure. PLAN: Patient's chest discomfort is probably noncardiac in origin. Her management is going to be in the form of risk-factor modifications. The patient is having intermittent episodes of sinus bradycardia. I will advise her to lose weight, exercise regularly and if she is on any AV eva blockers, I am going to stop it. MMODL / IJN: [id number] /
[2018-03-22] MEDS ORDERED: HYDROmorphone 1 MG/ML 1 ML SYRINGE IVP PRN (10:55)
[2018-03-22 11:37] LABS: Basophils % (A) 0 %; Eosinophils # (A) 0.2 k/uL (0-0.7); Eosinophils % (A) 3 %; HCT 38.7 % (34.0-46.0); HGB 13.2 gm/dL (11.4-16.0); Lymphocytes % (A) 32 %; MCH 29.5 pg (25.0-35.0); MCHC 34.1 g/dL (31.0-37.0); MCV 86.5 fL (80.0-100.0); Mean Platelet Volume 7.1; Monocytes # (A) 0.4 k/uL (0-1.0); Monocytes % (A) 6 %; Neutrophils # (A) 3.4 k/uL (1.3-7.7); Neutrophils % (A) 56 %; Platelet Count 217 k/uL (150-450); RBC 4.47 m/uL (3.80-5.40); RDW 12.8 % (11.5-15.5); WBC 6.2 k/uL (3.8-10.6)
--- NOTE | 2018-03-22 11:42 | XR ---
EXAMINATION TYPE: XR chest 1V portable DATE OF EXAM: 03/22/2018 COMPARISON: 03/20/2018 HISTORY: Chest pain. TECHNIQUE: Single frontal view of the chest is obtained. FINDINGS: There is no focal air space opacity, pleural effusion, or pneumothorax seen. The cardiac silhouette size is enlarged. Chronic obscuration of the left costophrenic angle is likely partially r elated to copious overlying soft tissues and a component of chronic atelectasis as this is linear in orientation on the prior. The osseous structures are intact. IMPRESSION: Probable chronic left basilar subsegmental atelectasis and cardiomegaly. No acute cardio pulmonary process.
[2018-03-22 11:45] LABS: Anion Gap 7 mmol/L; Blood Urea Nitrogen 5 mg/dL (7-17); Carbon Dioxide 26 mmol/L (22-30); Chloride 109 mmol/L (98-107); Glucose 93 mg/dL (74-99); Sodium 142 mmol/L (137-145)
[2018-03-22] MEDS: MULTIVITAMINS, THERA 1 EACH TAB PO SCH (15:44)
--- NOTE | 2018-03-22 16:26 | PN ---
PROGRESS NOTE DATE OF SERVICE: 03/22/2018 This 52-year-old woman who was admitted with chest pain had increased AST and ALT. The patient underwent cardiac cath today. No chest pain. No palpitations. Cardiac cath showed normal coronary arteries, normal LV end-diastolic pressure, as conveyed to me by Dr. Steward. Subsequently patient had some aching pain in the left upper chest and left shoulder also radiating to the left upper arm. No sweating. No palpitations. No radiation. Patient is being closely monitored. There is no history of any fever, rigor or chills. On exam, alert and oriented x3. Pulse 52, blood pressure 133/61, respirations normal, pulse ox 94% on room air. HEENT: Conjunctivae normal. Oral mucosa moist. NECK: No jugular venous distention. No carotid bruit. No lymph node enlargement. CARDIOVASCULAR SYSTEM: S1, S2 muffled. RESPIRATORY SYSTEM: Breath sounds diminished at the bases. No rhonchi. No crackles. ABDOMEN: Soft, nontender. No mass palpable. LEGS: No edema. No swelling. NERVOUS SYSTEM: Higher functions as mentioned earlier. Moves all 4 limbs. No focal motor or sensory deficit. LYMPHATIC: No lymph node palpable in neck or axillae. SKIN: No ulcer, rash, bleeding. LABS: CBC within normal limits. APTT 44.4. AST is 94 and ALT is 212, alkaline phosphatase 138. ASSESSMENT: 1. Chest pain, possibly musculoskeletal. 2. Status post cardiac catheterization, with negative cardiac catheterization. 3. Increased AST and ALT, possibly hepatitis of undetermined etiology. 4. Obesity with body mass index of 45.5. 5. Family history of coronary artery disease. 6. Hypertension. 7. Hyperlipidemia. 8. History of nephrolithiasis. 9. History of breast surgery. RECOMMENDATIONS AND DISCUSSION: I recommend to continue current medication, continue symptomatic treatment. I recommend D-dimer. If it is positive, recommend CT angio of the chest. Otherwise, closely monitor. Guarded prognosis because of multiple complex medical issues. Resume the rest of the medications. Symptomatic treatment. Rest of the recommendations per Surgery. Further recommendations to follow. MMODL / IJN: [id number] /
[2018-03-22 20:56] LABS: Hepatitis A Antibody IgM Non-Reactive (Non-Reactive); Hepatitis B Core IgM Non-Reactive (Non-Reactive)
[2018-03-22] MEDS ORDERED: ATORVASTATIN 40 MG TAB PO SCH (21:00)
[2018-03-23] MEDS: NITROGLYCERIN OINT 1 INCH/GM PACKET TOPICAL SCH ×2 (02:45→05:36)
[2018-03-23] MEDS: SODIUM CHLORIDE 0.9% 1,000 ML IV SCH (05:36)
[2018-03-23 07:16] LABS: Basophils % (A) 1 %; Eosinophils # (A) 0.2 k/uL (0-0.7); Eosinophils % (A) 3 %; HCT 38.3 % (34.0-46.0); HGB 13.1 gm/dL (11.4-16.0); Lymphocytes # (A) 1.5 k/uL (1.0-4.8); Lymphocytes % (A) 25 %; MCHC 34.2 g/dL (31.0-37.0); MCV 87.6 fL (80.0-100.0); Mean Platelet Volume 7.6; Monocytes # (A) 0.4 k/uL (0-1.0); Monocytes % (A) 7 %; Neutrophils # (A) 3.8 k/uL (1.3-7.7); Neutrophils % (A) 62 %; Platelet Count 228 k/uL (150-450); RBC 4.37 m/uL (3.80-5.40); RDW 12.8 % (11.5-15.5); WBC 6.2 k/uL (3.8-10.6)
[2018-03-23 07:17] VITALS: RESP 16
[2018-03-23 07:31] LABS: ALT 181 U/L (9-52); AST 73 U/L (14-36); Albumin 3.5 g/dL (3.5-5.0); Alkaline Phosphatase 129 U/L (38-126); Anion Gap 9 mmol/L; Blood Urea Nitrogen 7 mg/dL (7-17); Carbon Dioxide 28 mmol/L (22-30); Chloride 106 mmol/L (98-107); Glucose 95 mg/dL (74-99); Sodium 143 mmol/L (137-145); Total Protein 6.3 g/dL (6.3-8.2)
[2018-03-23] MEDS: ASPIRIN 325 MG TAB PO SCH (09:01)
[2018-03-23] MEDS: CALCIUM CARBONATE 500 MG CHEWABLE PO SCH (09:01)
[2018-03-23] MEDS: LOSARTAN 50 MG TAB PO SCH (09:01)
[2018-03-23] MEDS: PANTOPRAZOLE 40 MG TABLET PO SCH (09:01)
--- NOTE | 2018-03-23 10:14 | P.PN ---
Subjective Mrs. Camargo is seen and examined by myself and Dr. Horton. She is sitting up in bed eating breakfast in no acute distress. Past medical history significant for hypertension and dyslipidemia. She underwent heart catheterization yesterday which revealed normal coronary arteries. Postprocedure in the observation unit she experienced symptoms of left shoulder discomfort and was found to have a heart rate 38 and was diaphoretic. This resolved once she was sat up in bed. She had no chest pain, shortness of breath or palpitations. Possibly was a vasovagal episode. She was kept overnight for observation. Laboratory data reviewed, hemoglobin 13.1, platelets 228, d-dimer 0.4, sodium 143, potassium 4.0 , creatinine 0.81, AST 73, ALT 181, alk phos 129. She has been up ambulating in the room with no pain, swelling or bleeding at the puncture site. She denies chest pain, shortness of breath, dizziness or palpitations. Telemetry tracings indicate sinus bradycardia. Currently maintained on losartan 100 mg daily and atorvastatin 40 mg daily. Objective - Vital Signs Vital signs: Vital Signs Temp 98.1 F 03/23/18 07:16 Pulse 65 03/23/18 07:16 Resp 16 03/23/18 07:16 BP 133/75 03/23/18 07:16 Pulse Ox 96 03/23/18 07:16 Intake & Output 03/22/18 03/23/18 03/23/18 18:59 06:59 18:59 Intake Total 458 980 250 Balance 458 980 250 Weight 127.9 kg Intake: IV 100 20 0.9 20 Oral 358 960 250 Other: Voiding Method Toilet Toilet # Voids 3 3 - Exam GENERAL: Well-appearing, well-nourished and in no acute distress. NECK: Supple without JVD or thyromegaly. LUNGS: Breath sounds clear to auscultation bilaterally. Respiration equal and unlabored. No wheezes, rales or rhonchi. HEART: Regular rate and rhythm without murmurs, rubs or gallops. S1 and S2 heard. EXTREMITIES: Normal range of motion, no edema. No clubbing or cyanosis. Peripheral pulses intact. RIGHT GROIN: soft, non-tender, no hematoma, no bleeding. strong distal pulse. - Labs CBC & Chem 7: 03/23/18 06:24 03/23/18 06:24 Labs: Abnormal Lab Results - Last 24 Hours (Table) 03/22/18 03/23/18 Range/Units 11:16 06:24 Chloride 109 H (98-107) mmol/L BUN 5 L (7-17) mg/dL AST 73 H (14-36) U/L ALT 181 H (9-52) U/L Alkaline Phosphatase 129 H (38-126) U/L Assessment and Plan Assessment: ASSESSMENT Unstable angina, normal coronary arteries on catheterization yesterday Hypertension Dyslipidemia Elevated liver enzymes. PLAN Stable from a cardiac perspective. Hold atorvastatin secondary to elevated liver enzymes. Ongoing medical management of elevated liver enzymes per primary care team. Follow up with Dr. Steward in 1-week for a groin check. Appointment has been made for 03/29. Nurse Practitioner note has been reviewed, I agree with a documented findings and plan of care. Patient was seen and examined.
[2018-03-23 11:36] VITALS: BP 138/81; PULSE 67; TEMP 98.3
--- NOTE | 2018-03-23 12:30 | DS ---
DISCHARGE SUMMARY FINAL DIAGNOSES: 1. Chest pain, possibly musculoskeletal. 2. Status post cardiac catheterization with a negative cardiac cath. 3. Increased AST, ALT, possible hepatitis of undetermined etiology, possibly drug induced. 4. Obesity with body mass index 45.5. 5. Family history of coronary artery disease. 6. Hypertension. 7. Hyperlipidemia. 8. History of nephrolithiasis. 9. History of breast surgery. DISCHARGE DISPOSITION: The patient will be discharged in stable condition with guarded prognosis after clearance from Cardiology. HISTORY OF PRESENT ILLNESS: This 52-year-old woman with a past medical history of multiple medical problems, being followed by Dr. Judith Shepard in the outpatient setting with chest pain, myocardial infarction ruled out. The patient underwent a cardiac catheterization, which was negative. Subsequently patient had some minimal chest discomfort, treated symptomatically, improved significantly. Patient became completely asymptomatic. AST ALT was mildly elevated. The AST was at 73 and ALT was 181. Recommended close outpatient followup with Dr. Judith Shepard and as well as ultrasound of the liver and gallbladder as well. Otherwise, hepatitis panel was negative and Cardiology saw the patient and cleared the patient for discharge. On exam, vitals are stable. CARDIOVASCULAR SYSTEM: S1 and S2 muffed. Abdomen is soft, nontender. No mass palpable. LEGS: No edema. NERVOUS SYSTEM: No focal deficits. DISCHARGE ADVICE AND MEDICATIONS: 1. Diet is cardiac. 2. Activity limited until followup. 3. Follow up with Dr. Judith Shepard in 2 to 3 days. 4. Follow up with Cardiology as recommended. Medications are: 1. Calcium 600 mg p.o. daily. 2. Cozaar 100 mg p.o. daily. 3. Multivitamins 1 p.o. daily. 4. Aleve 440 mg p.o. b.i.d. 5. Omeprazole 20 mg p.o. b.i.d. 6. Ecotrin 81 mg p.o. daily. Please hold Lipitor for now and follow closely with Dr. Judith Shepard in the outpatient setting and Cardiology. MMODL / IJN: [id number] /
== END 2018-03-23 12:20 | disposition home or self-care (01) ==
LOC: EC 09:28 → 3SUR 11:16 → 3OBS 13:31
PROVIDERS: ADMIT Hospitalist; ATTEND Hospitalist
DX: R07.89 Other chest pain (principal); R06.02 Shortness of breath; R11.0 Nausea; R74.0 Nonspecific elevation of levels of transaminase and lactic acid dehydrogenase [LDH]; R74.8 Abnormal levels of other serum enzymes; R61 Generalized hyperhidrosis; E78.5 Hyperlipidemia, unspecified; R00.1 Bradycardia, unspecified; I10 Essential (primary) hypertension; Z82.49 Family history of ischemic heart disease and other diseases of the circulatory system; Z87.442 Personal history of urinary calculi; Z79.899 Other long term (current) drug therapy; Z79.1 Long term (current) use of non-steroidal anti-inflammatories (NSAID); Z80.9 Family history of malignant neoplasm, unspecified; Z68.42 Body mass index [BMI] 45.0-49.9, adult; E66.01 Morbid (severe) obesity due to excess calories
CPT/HCPCS: 99291; 96376 ×3; 96365 ×2; 96366 ×4; 96375; 36415; 93306; 93458; 85379; 80061; 80053 ×3; 80048; 80074; 84443; 82550; 82553; 83735; 84484 ×2; 85025 ×3; 85610; 85730 ×3; 81003; 71045; 71046; G0378 ×4; C1760; C1894; C1769; J2250; J1644 ×3; J2405; J2001; J3010; J1170; Q9950; Q9967

== ENCOUNTER → 2018-04-02 | Outpatient (CLI) | payer BC ==
--- NOTE | 2018-04-02 09:26 | US ---
EXAMINATION TYPE: US abdomen limited DATE OF EXAM: 04/02/2018 COMPARISON: CT from 2016 CLINICAL HISTORY: R94.5 Abnormal Results. elevated liver enzymes EXAM MEASUREMENTS: Liver Length: 14.7 cm Gallbladder Wall: 0.4 cm CBD: 0.5 cm Right Kidney: 11.2 x 4.3 x 5.6 cm Technically difficult exam due to midline bowel gas. Pancreas: visualized portions wnl Liver: R scrub sonographic steatosis Gallbladder: mobile stone that only moved out of the neck with patient THAI. Evidence for sonographic Monk's sign: Yes CBD: wnl Right Kidney: No hydronephrosis or masses seen, lower pole obscured by bowel. IMPRESSION: 1. Cholelithiasis. Patient describes sonographic Monk's sign although there are no other sonographi c finding to suggest acute cholecystitis. Correlate with serum laboratory values. 2. Sonographic findings most commonly related to hepatic steatosis, overall appearing mild in degree.
== END | disposition home or self-care (01) ==
LOC: RADUSWWP 08:52
PROVIDERS: ATTEND Hospitalist
DX: K80.20 Calculus of gallbladder without cholecystitis without obstruction (principal); R94.5 Abnormal results of liver function studies
CPT/HCPCS: 76705

== ENCOUNTER → 2018-12-27 | Outpatient (CLI) | payer BC ==
--- NOTE | 2018-12-28 09:23 | MM ---
Reason for exam: screening (asymptomatic). Last mammogram was performed 1 year ago. History: Patient is postmenopausal and is nulliparous. Family history of breast cancer in mother at age 58. Reductions of both breasts, July 2005. Took hormonal contraceptives for 1 year beginning at age 35. Physical Findings: A clinical breast exam by your physician is recommended on an annual basis and results should be correlated with mammographic findings. MG 3D Screening Mammo W/Cad Bilateral CC and MLO view(s) were taken. Prior study comparison: December 21, 2017, bilateral MG 3d screening mammo w/cad. November 03, 2016, bilateral MG 3d diag mammo w/cad CHERYL. November 03, 2016, left breast US breast LT. May 12, 2016, left breast MG 3d diag mammo w/cad LT. November 01, 2015, bilateral MG 3d screening mammo w/cad. The breast tissue is almost entirely fat. Finding: Architectural distortion in the upper outer quadrant of the right breast is stable consistent with scar. No significant changes in finding since December 21, 2017, November 01, 2015, November 03, 2016, November 03, 2016, and May 12, 2016. ASSESSMENT: Benign, BI-RAD 2 RECOMMENDATION: Routine screening mammogram of both breasts in 1 year.
== END | disposition home or self-care (01) ==
LOC: RADMAMWWP 15:44
PROVIDERS: ATTEND Family Medicine
DX: Z12.31 Encounter for screening mammogram for malignant neoplasm of breast (principal)
CPT/HCPCS: 77063; 77067

== ENCOUNTER 2019-08-13 04:13 | Emergency (ER) | payer BC ==
[2019-08-13 04:30] VITALS: RESP 16; TEMP 97.8
[2019-08-13] MEDS ORDERED: MORPHINE SULFATE 4 MG/ML SYRINGE IV STA (04:54)
--- NOTE | 2019-08-13 04:58 | ED ---
Chest Pain HPI - General Chief Complaint: Chest Pain Stated Complaint: Chest Pain Time Seen by Provider: 08/13/19 04:26 Source: patient Mode of arrival: ambulatory Limitations: no limitations - History of Present Illness MD Complaint: chest pain Onset/Timin -: hour(s) Onset: awoke with symptoms Pain Location: right chest Pain Radiation: back Severity: moderate Quality: aching Consistency: constant Improves With: nothing Worsens With: nothing Treatments Prior to Arrival: none - Related Data Home Medications Medication Instructions Recorded Confirmed Losartan Potassium [Cozaar] 100 mg PO DAILY 11/02/15 03/20/18 Multivitamins, Thera [Multivitamin 1 tab PO DAILY 11/02/15 03/20/18 (formulary)] Omeprazole 20 mg PO [id number] 10/05/17 03/20/18 Calcium Carbonate [Calcium] 600 mg PO DAILY 03/20/18 03/20/18 Naproxen Sodium [Aleve] 440 mg PO Q12HR PRN 03/20/18 03/20/18 Previous Rx's Medication Instructions Recorded Aspirin EC [Ecotrin Low Dose] 81 mg PO DAILY #30 tablet. 03/23/18 Allergies Allergy/AdvReac Type Severity Reaction Status Date / Time No Known Allergies Allergy Verified 08/13/19 04:29 Review of Systems ROS Statement: Those systems with pertinent positive or pertinent negative responses have been documented in the HPI. ROS Other: All systems not noted in ROS Statement are negative. Constitutional: Denies: fever, chills Respiratory: Denies: cough, dyspnea Cardiovascular: Reports: chest pain. Denies: palpitations, edema, syncope Gastrointestinal: Denies: abdominal pain, nausea, vomiting, diarrhea Genitourinary: Denies: dysuria, hematuria Musculoskeletal: Denies: back pain Skin: Denies: rash Neurological: Denies: headache, weakness, numbness Past Medical History Past Medical History: Hyperlipidemia, Hypertension Additional Past Medical History / Comment(s): Hx kidney stones History of Any Multi-Drug Resistant Organisms: None Reported Past Surgical History: Breast Surgery Additional Past Surgical History / Comment(s): Br Reduction; colonoscopy Past Anesthesia/Blood Transfusion Reactions: Postoperative Nausea & Vomiting (PONV) Past Psychological History: No Psychological Hx Reported Smoking Status: Never smoker Past Alcohol Use History: None Reported Past Drug Use History: None Reported - Past Family History Mother Family Medical History: Cancer General Exam Limitations: no limitations General appearance: alert, in no apparent distress Head exam: Present: atraumatic, normocephalic Eye exam: Present: normal appearance. Absent: scleral icterus, conjunctival injection ENT exam: Present: normal oropharynx Respiratory exam: Present: normal lung sounds bilaterally. Absent: respiratory distress, wheezes, rales, rhonchi, stridor Cardiovascular Exam: Present: normal rhythm, bradycardia (Rate approximately 56 bpm), normal heart sounds. Absent: systolic murmur, diastolic murmur, rubs, gallop GI/Abdominal exam: Present: soft. Absent: distended, tenderness, guarding, rebound, rigid, mass Extremities exam: Present: normal inspection, normal capillary refill. Absent: pedal edema, calf tenderness Back exam: Present: normal inspection. Absent: CVA tenderness (R), CVA tenderness (L) Neurological exam: Present: alert Skin exam: Present: warm, dry, intact, normal color. 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 She states that her symptoms have completely resolved. I did discuss further workup, including imaging, but at this point the patient feels well and is declining to have that. She states she will deftly return should any symptoms recur for further workup. I discussed the appropriate follow-up and further care. All questions answered. Disposition Clinical Impression: Chest pain Disposition: HOME SELF-CARE Condition: Good Instructions (If sedation given, give patient instructions): Chest Pain (ED) Is patient prescribed a controlled substance at d/c from ED?: No Referrals: Judith Shepard MD [Primary Care Provider] - 1-2 days
[2019-08-13 05:04] LABS: Basophils % (A) 1 %; Eosinophils # (A) 0.2 k/uL (0-0.7); Eosinophils % (A) 3 %; HCT 44.6 % (34.0-46.0); HGB 15.1 gm/dL (11.4-16.0); Lymphocytes # (A) 2.7 k/uL (1.0-4.8); Lymphocytes % (A) 34 %; MCH 30.1 pg (25.0-35.0); MCHC 33.9 g/dL (31.0-37.0); Mean Platelet Volume 8.3; Monocytes # (A) 0.6 k/uL (0-1.0); Monocytes % (A) 8 %; Neutrophils % (A) 51 %; Platelet Count 255 k/uL (150-450); RBC 5.02 m/uL (3.80-5.40); RDW 12.3 % (11.5-15.5); WBC 7.7 k/uL (3.8-10.6)
[2019-08-13 05:12] LABS: ALT 33 U/L (4-34); AST 34 U/L (14-36); African American GFR (CKD) >90 (>60 ml/min/1.73 sqM); Albumin 4.4 g/dL (3.5-5.0); Alkaline Phosphatase 87 U/L (38-126); Amylase 59 U/L (30-110); Anion Gap 7 mmol/L; Blood Urea Nitrogen 17 mg/dL (7-17); Calcium 9.9 mg/dL (8.4-10.2); Carbon Dioxide 26 mmol/L (22-30); Chloride 104 mmol/L (98-107); Glucose 108 mg/dL (74-99); Non-African American GFR(CKD) 81 (>60 ml/min/1.73 sqM); Sodium 137 mmol/L (137-145); Total Bilirubin 0.6 mg/dL (0.2-1.3); Total Protein 7.4 g/dL (6.3-8.2)
--- NOTE | 2019-08-13 05:12 | XR ---
EXAMINATION TYPE: XR chest 2V DATE OF EXAM: 08/13/2019 COMPARISON: 03/22/2018 HISTORY: Chest pain TECHNIQUE: FINDINGS: There is no heart failure nor confluent pneumonic infiltrate. Costophrenic angles are clear . Bony thorax is intact. Heart size is normal. There are chest leads. IMPRESSION: No cardiopulmonary disease. No change. Normal heart.
[2019-08-13 05:25] LABS: INR 0.9 (<1.2); Prothrombin Time 9.8 sec (9.0-12.0)
[2019-08-13 05:30] LABS: D-Dimer 0.6 mg/L FEU (<0.60); Partial Thromboplastin Time 20.9 sec (22.0-30.0)
[2019-08-13 06:21] VITALS: BP 102/58; PULSE 68
== END 2019-08-13 06:26 | disposition home or self-care (01) ==
LOC: EC 04:13
DX: R07.9 Chest pain, unspecified (principal); I10 Essential (primary) hypertension; Z79.899 Other long term (current) drug therapy
CPT/HCPCS: 36415; 93005; 85379; 80053; 82150; 83690; 83735; 84484; 85025; 85610; 85730; 71046; 99285; 96374; J2270

== ENCOUNTER → 2020-01-18 | Outpatient (CLI) | payer BC ==
--- NOTE | 2020-01-23 09:22 | MM ---
Reason for exam: screening (asymptomatic). Last mammogram was performed 1 year and 1 month ago. History: Patient is postmenopausal and is nulliparous. Family history of breast cancer in mother at age 58. Reductions of both breasts, July 2005. Took hormonal contraceptives for 1 year beginning at age 35. Physical Findings: A clinical breast exam by your physician is recommended on an annual basis and results should be correlated with mammographic findings. MG 3D Screening Mammo W/Cad Bilateral CC, MLO, and XCCL view(s) were taken. Prior study comparison: December 27, 2018, bilateral MG 3d screening mammo w/cad. December 21, 2017, bilateral MG 3d screening mammo w/cad. November 03, 2016, bilateral MG 3d diag mammo w/cad [facility]ERYL. Developing asymmetry left lower outer quadrant 9cm from nipple. This finding is changed when compared with previous exams. ASSESSMENT: Incomplete: need additional imaging evaluation, BI-RAD 0 RECOMMENDATION: Special view mammogram of the left breast. If lesion persists on supplemental views, image directed ultrasound is recommended. [facility] will attempt to contact patient to return for supplemental views and ultrasound if indicated.
== END | disposition home or self-care (01) ==
LOC: RADMAMWWP 08:10
PROVIDERS: ATTEND Family Medicine
DX: Z12.31 Encounter for screening mammogram for malignant neoplasm of breast (principal)
CPT/HCPCS: 77063; 77067

== ENCOUNTER 2020-01-28 08:05 | Observation (INO) | payer BC ==
--- NOTE | 2020-01-28 08:52 | ED ---
General Adult HPI - General Chief complaint: Chest Pain Stated complaint: Chest pain Time Seen by Provider: 01/28/20 08:14 Source: patient, RN notes reviewed, old records reviewed Mode of arrival: wheelchair Limitations: no limitations - History of Present Illness Initial comments: 54-year-old female presenting for evaluation of chest pain. Pain began while the patient was sleeping at approximately 4 AM this morning. She is presenting at 8 AM. She states she has had similar episodes to this in the past including one week ago she developed chest pain and was on her way to the emergency department with her symptoms resolved and she did not seek medical attention at that time. Additionally she's had episodes of chest pain in the past and has singh d a heart catheterization in 2018. She has no known history of coronary artery disease that she reports. She does report some mild dyspnea associated with this. He did vomit once as well. - Related Data Home Medications Medication Instructions Recorded Confirmed Losartan Potassium [Cozaar] 100 mg PO DAILY 11/02/15 03/20/18 Multivitamins, Thera [Multivitamin 1 tab PO DAILY 11/02/15 03/20/18 (formulary)] Omeprazole 20 mg PO AC-BRKFST 10/05/17 03/20/18 Calcium Carbonate [Calcium] 600 mg PO DAILY 03/20/18 03/20/18 Naproxen Sodium [Aleve] 440 mg PO Q12HR PRN 03/20/18 03/20/18 Previous Rx's Medication Instructions Recorded Aspirin EC [Ecotrin Low Dose] 81 mg PO DAILY #30 tablet. 03/23/18 Allergies Allergy/AdvReac Type Severity Reaction Status Date / Time No Known Allergies Allergy Verified 01/28/20 08:08 Review of Systems ROS Statement: Those systems with pertinent positive or pertinent negative responses have been documented in the HPI. ROS Other: All systems not noted in ROS Statement are negative. Past Medical History Past Medical History: Hyperlipidemia, Hypertension Additional Past Medical History / Comment(s): Hx kidney stones History of Any Multi-Drug Resistant Organisms: None Reported Past Surgical History: Breast Surgery Additional Past Surgical History / Comment(s): Br Reduction; colonoscopy Past Anesthesia/Blood Transfusion Reactions: Postoperative Nausea & Vomiting (PONV) Past Psychological History: No Psychological Hx Reported Smoking Status: Never smoker Past Alcohol Use History: Occasional Past Drug Use History: None Reported - Past Family History Mother Family Medical History: Cancer General Exam Limitations: no limitations General appearance: alert, in no apparent distress Head exam: Present: atraumatic, normocephalic Eye exam: Present: normal appearance, PERRL ENT exam: Present: normal exam Neck exam: Present: normal inspection. Absent: tenderness, meningismus Respiratory exam: Present: normal lung sounds bilaterally. Absent: respiratory distress, wheezes Cardiovascular Exam: Present: normal rhythm, bradycardia GI/Abdominal exam: Present: soft, tenderness (Mild epigastric tenderness). Absent: distended Extremities exam: Present: normal inspection, normal capillary refill. Absent: pedal edema Back exam: Present: normal inspection Neurological exam: Present: alert, oriented X3, CN II-XII intact. Absent: motor sensory deficit Psychiatric exam: Present: normal affect, normal mood Skin exam: Present: warm, dry, intact. Absent: cyanosis, diaphoretic Course Vital Signs 01/28/20 01/28/20 01/28/20 08:06 08:08 09:08 Temperature 98.3 F Pulse Rate 79 53 L Respiratory 18 18 18 Rate Blood Pressure 142/87 141/83 O2 Sat by Pulse 99 100 Oximetry EKG Findings - EKG Comments: EKG Findings:: EKG: Sinus bradycardia rate of 44, NC interval 178, QRS duration 92, QTC 435, no ST segment elevation. Medical Decision Making - Medical Decision Making 54-year-old female with intermittent chest pain. Workup reveals EKG which is sinus bradycardia, no ST segment elevation, chest x-ray showing cardiomegaly without any other acute processes. She has a normal CBC, normal CMP, she has an elevated d-dimer and CT angiography is ordered in the emergency department. This is negative for pulmonary and wasn't, does show cardiomegaly and concern for pulmonary edema. Troponin is negative. She's given a dose of Lasix, and aspirin in the emergency department. She will be admitted with cardiology on consult, telemetry, echo has been ordered. Case discussed with Dr. Deleon who will admit. - Lab Data Result diagrams: 01/28/20 08:49 01/28/20 08:49 Lab Results 01/28/20 01/28/20 01/28/20 Range/Units 08:49 08:49 08:49 WBC 8.1 (3.8-10.6) k/uL RBC 4.96 (3.80-5.40) m/uL Hgb 14.7 (11.4-16.0) gm/dL Hct 44.2 (34.0-46.0) % MCV 89.1 (80.0-100.0) fL MCH 29.6 (25.0-35.0) pg MCHC 33.2 (31.0-37.0) g/dL RDW 12.3 (11.5-15.5) % Plt Count 293 (150-450) k/uL Neutrophils % 60 % Lymphocytes % 27 % Monocytes % 8 % Eosinophils % 3 % Basophils % 1 % Neutrophils # 4.8 (1.3-7.7) k/uL Lymphocytes # 2.2 (1.0-4.8) k/uL Monocytes # 0.6 (0-1.0) k/uL Eosinophils # 0.2 (0-0.7) k/uL Basophils # 0.1 (0-0.2) k/uL PT 9.9 (9.0-12.0) sec INR 1.0 (<1.2) APTT 23.6 (22.0-30.0) sec D-Dimer 0.99 H (<0.60) mg/L FEU Sodium 139 (137-145) mmol/L Potassium 4.2 (3.5-5.1) mmol/L Chloride 106 (98-107) mmol/L Carbon Dioxide 26 (22-30) mmol/L Anion Gap 7 mmol/L BUN 12 (7-17) mg/dL Creatinine 0.82 (0.52-1.04) mg/dL Est GFR (CKD-EPI)AfAm >90 (>60 ml/min/1.73 sqM) Est GFR (CKD-EPI)NonAf 81 (>60 ml/min/1.73 sqM) Glucose 116 H (74-99) mg/dL Calcium 9.3 (8.4-10.2) mg/dL Magnesium 1.9 (1.6-2.3) mg/dL Total Bilirubin 0.7 (0.2-1.3) mg/dL AST 32 (14-36) U/L ALT 36 H (4-34) U/L Alkaline Phosphatase 96 (38-126) U/L Troponin I (0.000-0.034) ng/mL Total Protein 7.4 (6.3-8.2) g/dL Albumin 4.5 (3.5-5.0) g/dL Lipase 211 (23-300) U/L 01/28/20 Range/Units 08:49 WBC (3.8-10.6) k/uL RBC (3.80-5.40) m/uL Hgb (11.4-16.0) gm/dL Hct (34.0-46.0) % MCV (80.0-100.0) fL MCH (25.0-35.0) pg MCHC (31.0-37.0) g/dL RDW (11.5-15.5) % Plt Count (150-450) k/uL Neutrophils % % Lymphocytes % % Monocytes % % Eosinophils % % Basophils % % Neutrophils # (1.3-7.7) k/uL Lymphocytes # (1.0-4.8) k/uL Monocytes # (0-1.0) k/uL Eosinophils # (0-0.7) k/uL Basophils # (0-0.2) k/uL PT (9.0-12.0) sec INR (<1.2) APTT (22.0-30.0) sec D-Dimer (<0.60) mg/L FEU Sodium (137-145) mmol/L Potassium (3.5-5.1) mmol/L Chloride (98-107) mmol/L Carbon Dioxide (22-30) mmol/L Anion Gap mmol/L BUN (7-17) mg/dL Creatinine (0.52-1.04) mg/dL Est GFR (CKD-EPI)AfAm (>60 ml/min/1.73 sqM) Est GFR (CKD-EPI)NonAf (>60 ml/min/1.73 sqM) Glucose (74-99) mg/dL Calcium (8.4-10.2) mg/dL Magnesium (1.6-2.3) mg/dL Total Bilirubin (0.2-1.3) mg/dL AST (14-36) U/L ALT (4-34) U/L Alkaline Phosphatase (38-126) U/L Troponin I <0.012 (0.000-0.034) ng/mL Total Protein (6.3-8.2) g/dL Albumin (3.5-5.0) g/dL Lipase (23-300) U/L Disposition Clinical Impression: Chest pain, CHF (congestive heart failure) Disposition: ADMITTED IP TO THIS HOSP Condition: Stable Is patient prescribed a controlled substance at d/c from ED?: No Referrals: Judith Shepard MD [Primary Care Provider] - 1-2 days Decision to Admit Reason: Admit from EC Decision Date: 01/28/20 Decision Time: 10:47
--- NOTE | 2020-01-28 09:06 | XR ---
EXAMINATION TYPE: XR chest 2V DATE OF EXAM: 01/28/2020 COMPARISON: Prior chest x-ray August 13, 2019. HISTORY: Chest pain. TECHNIQUE: Frontal and lateral views of the chest are obtained. FINDINGS: Somewhat low lung volumes redemonstrated. Overlying EKG leads again seen. There is no new s uspicious focal air space opacity, pleural effusion, or pneumothorax seen. The cardiac silhouette si ze remains enlarged. The osseous structures are intact. IMPRESSION: Cardiomegaly without new acute pulmonary process.
[2020-01-28] MEDS ORDERED: ASPIRIN 325 MG TAB PO STA (09:11)
[2020-01-28] MEDS ORDERED: MORPHINE SULFATE 4 MG/ML SYRINGE IVP STA (09:11)
[2020-01-28 09:17] LABS: Basophils # (A) 0.1 k/uL (0-0.2); Basophils % (A) 1 %; Eosinophils # (A) 0.2 k/uL (0-0.7); Eosinophils % (A) 3 %; HCT 44.2 % (34.0-46.0); HGB 14.7 gm/dL (11.4-16.0); Lymphocytes # (A) 2.2 k/uL (1.0-4.8); Lymphocytes % (A) 27 %; MCH 29.6 pg (25.0-35.0); MCHC 33.2 g/dL (31.0-37.0); MCV 89.1 fL (80.0-100.0); Mean Platelet Volume 7.8; Monocytes # (A) 0.6 k/uL (0-1.0); Monocytes % (A) 8 %; Neutrophils # (A) 4.8 k/uL (1.3-7.7); Neutrophils % (A) 60 %; Platelet Count 293 k/uL (150-450); RBC 4.96 m/uL (3.80-5.40); RDW 12.3 % (11.5-15.5); WBC 8.1 k/uL (3.8-10.6)
[2020-01-28 09:23] LABS: ALT 36 U/L (4-34); AST 32 U/L (14-36); African American GFR (CKD) >90 (>60 ml/min/1.73 sqM); Albumin 4.5 g/dL (3.5-5.0); Alkaline Phosphatase 96 U/L (38-126); Anion Gap 7 mmol/L; Blood Urea Nitrogen 12 mg/dL (7-17); Calcium 9.3 mg/dL (8.4-10.2); Carbon Dioxide 26 mmol/L (22-30); Chloride 106 mmol/L (98-107); Glucose 116 mg/dL (74-99); Magnesium 1.9 mg/dL (1.6-2.3); Non-African American GFR(CKD) 81 (>60 ml/min/1.73 sqM); Potassium 4.2 mmol/L (3.5-5.1); Sodium 139 mmol/L (137-145); Total Bilirubin 0.7 mg/dL (0.2-1.3); Total Protein 7.4 g/dL (6.3-8.2)
[2020-01-28 09:25] LABS: Partial Thromboplastin Time 23.6 sec (22.0-30.0); Prothrombin Time 9.9 sec (9.0-12.0)
[2020-01-28 09:44] LABS: D-Dimer 0.99 mg/L FEU (<0.60)
--- NOTE | 2020-01-28 10:41 | CT ---
EXAMINATION TYPE: CT angio chest DATE OF EXAM: 01/28/2020 COMPARISON: Chest x-ray earlier today. HISTORY: Chest pains, elevated d-dimer CT DLP: 1030.7 mGycm. Automated Exposure Control for Dose Reduction was Utilized. CONTRAST: CTA scan of the thorax is performed with IV Contrast, patient injected with 100 mL of Isovue 370, pul monary embolism protocol. MIP Images are created on CT scanner and reviewed. FINDINGS: LUNGS: Somewhat low lung volumes redemonstrated. Some areas of increased groundglass opacity througho ut both lungs favor mild alveolar and interstitial edema with some peripheral reticular prominence. N o suspicious focal consolidation. Suboptimal study as patient unable to hold breath, this limits eval uation for subcentimeter nodules. No pleural effusion or pneumothorax noted bilaterally. MEDIASTINUM: There is satisfactory enhancement of the pulmonary artery and its branches, there is no CT evidence for pulmonary embolism. There are no greater than 1 cm hilar or mediastinal lymph nodes. No significant pericardial effusion is seen. Cardiomegaly redemonstrated. OTHER: Slight underlying dextroconvex scoliosis. And mild multilevel spurring. Mild splenomegaly appr eciated measuring 13.5 cm long axis coronal image 126. IMPRESSION: 1. No CT evidence for acute pulmonary embolism. 2. Correlate for CHF exacerbation as there is cardiomegaly with suspected mild alveolar and interstit ial edema.
[2020-01-28] MEDS ORDERED: FUROSEMIDE 10 MG/ML 2 ML VIAL IV STA (10:42)
[2020-01-28] MEDS ORDERED: NALOXONE 0.4 MG/ML 1 ML VIAL IV PRN (10:43)
[2020-01-28] MEDS ORDERED: ACETAMINOPHEN TAB 325 MG TAB PO PRN (10:43)
[2020-01-28] MEDS ORDERED: MORPHINE SULFATE 4 MG/ML SYRINGE IV PRN (10:43)
--- NOTE | 2020-01-28 15:14 | ECHOF ---
Referral Reason:chf MEASUREMENTS -------- HEIGHT: 167.6 cm WEIGHT: 122.5 kg BP: RVIDd: 2.1 cm (< 3.3) IVSd: 1.2 cm (0.6 - 1.1) LVIDd: 4.1 cm (3.9 - 5.3) LVPWd: 1.5 cm (0.6 - 1.1) IVSs: 1.8 cm LVIDs: 1.8 cm LVPWs: 1.7 cm Ao Diam: 2.8 cm (2.0 - 3.7) AV Cusp: 1.9 cm (1.5 - 2.6) LA Diam: 3.5 cm (2.7 - 3.8) MV E Sampson: 0.84 m/s MV DecT: 322 ms MV A Sampson: 0.69 m/s MV E/A Ratio: 1.22 RAP: 5.00 mmHg RVSP: 13.79 mmHg FINDINGS -------- Sinus rhythm. This was a technically difficult study with suboptimal views. The left ventricular size is normal. There is moderate concentric left ventricular hypertrophy. O verall left ventricular systolic function is normal with, an EF between 55 - 60 %. The diastolic fi lling pattern is normal for the age of the patient 11.34. The right ventricle is normal in size. The left atrial size is normal. The right atrial size is normal. 5.0mg of Lumason was utilized for enhancement of images The aortic valve is trileaflet and appears structurally normal. The mitral valve is normal. Mild mitral regurgitation is present. The tricuspid valve appears structurally normal. Mild tricuspid regurgitation present. Right vent ricular systolic pressure is normal at < 35 mmHg. The pulmonic valve was not well visualized. There is no pulmonic regurgitation present. The aortic root size is normal. IVC Not well visulized. There is no pericardial effusion. CONCLUSIONS -------- 1. There is moderate concentric left ventricular hypertrophy. 2. Overall left ventricular systolic function is normal with, an EF between 55 - 60 %. 3. The diastolic filling pattern is normal for the age of the patient 11.34 4. Mild mitral regurgitation is present. 5. Mild tricuspid regurgitation present. MEDICAL DOCTOR MD/MEDICAL DIRECTOR: Muriel Eric RDCS
[2020-01-28] MEDS: PANTOPRAZOLE 40 MG TABLET PO SCH (17:22)
--- NOTE | 2020-01-28 19:46 | CONS ---
CONSULTATION Mrs. Camargo is a 54-year-old female with a history of hypertension and hyperlipidemia who presented with symptoms of chest discomfort. She has been having the discomfort on and off for the last week or so. The discomfort is not activity related, occurring after eating any occurred one time and at times when it wakes her up from sleep. The discomfort can last for a few hours. Today she had more discomfort and because of that came into the emergency room and subsequently admitted. The patient is average in exercise tolerance, does not have any exertional chest discomfort. Her breathing is unchanged. She denies any dizziness or palpitation. No peripheral edema. No PND, orthopnea, or syncope. She was admitted to the hospital in March 2018 with symptoms of chest discomfort. At that time was evaluated by Dr. Steward, underwent cardiac catheterization, revealed no evidence of obstructive coronary disease and her systolic function by echocardiography was normal. Her coronary risk factors are remarkable for hypertension and hyperlipidemia. She is nonsmoker, nondiabetic. MEDICATION: Include Cozaar 100 mg daily, Lipitor 40 mg daily, aspirin once a day, calcium carbonate and a multivitamin. REVIEW OF SYSTEMS: RESPIRATORY SYSTEM: She has no recent wheezing or cough. No history of documented obstructive lung disease. GI SYSTEM: She has a history of heartburn but better. No recent GI bleeding. No nausea or vomiting. SYSTEM: No dysuria or hematuria. NERVOUS SYSTEM: No stroke or seizure. PAST MEDICAL HISTORY: Past medical history is remarkable for hypertension, hyperlipidemia, and history of obstructive sleep apnea. PHYSICAL EXAMINATION: She is a 54-year-old female, alert, oriented, in no apparent distress. Blood pressure 113/60 with a heart rate in 60s. HEAD: Normocephalic. EYES: Sclerae nonicteric. NECK: Good carotid upstroke. No bruit, no jugular venous distention. LUNGS: Clear to auscultation. HEART: Regular rate and rhythm. S1, S2. No S3. No S4. No murmur or rub. ABDOMEN: Soft, nontender. Positive bowel sounds. No organomegaly. EXTREMITIES: No edema. Intact pulses. LAB DATA: Revealed a troponin less than 0.012 for two samples. BUN and creatinine 12 and 0.8, potassium 4.2, AST of 32, ALT of 36. Hemoglobin of 14.7. D-dimer 0.99. EKG revealed a sinus mechanism, rate of 44, poor R-wave progression, nonspecific ST-T wave changes. Chest x-ray shows no acute infiltrate. CT scan of the chest shows no pulmonary embolism. There was a question of CHF. IMPRESSION: 1. Symptoms of chest discomfort, predominantly right-sided. Doubt cardiac in etiology. No evidence to suggest active cardiac issues. The patient has underwent cardiac catheterization in March of 2018. At that time there was no evidence of obstructive coronary artery disease. 2. Report congestive heart failure on the CT scan with normal BNP and normal physical examination. No evidence of congestive heart failure. 3. History of hypertension. 4. Hyperlipidemia. RECOMMENDATION: From the cardiac standpoint, I will stop her IV Lasix at this time. I will re-initiate the treatment with her Lipitor and her losartan. I will add to her regimen proton pump inhibitor. We will obtain echocardiogram with Doppler. Depending on her progress, further recommendation will be made. I do not see any evidence to suggest active cardiac issues. Thank you for this consult. Will follow with you. MMODL / IJN: [id number] /
[2020-01-28 20:35] VITALS: RESP 16
[2020-01-28] MEDS ORDERED: ATORVASTATIN 40 MG TAB PO SCH (21:00)
[2020-01-28] MEDS ORDERED: ONDANSETRON 4 MG/2 ML VIAL IVP PRN (21:28)
[2020-01-29] MEDS: PANTOPRAZOLE 40 MG TABLET PO SCH (06:24)
[2020-01-29] MEDS ORDERED: LOSARTAN 50 MG TAB PO SCH (09:00)
[2020-01-29] MEDS ORDERED: MULTIVITAMINS, THERA 1 EACH TAB PO SCH (09:00)
[2020-01-29] MEDS ORDERED: ASPIRIN 81 MG PO SCH (09:00)
[2020-01-29 12:16] VITALS: BP 124/75; PULSE 82; TEMP 97.9
--- NOTE | 2020-01-29 14:33 | US ---
EXAMINATION TYPE: US venous doppler duplex LE BI DATE OF EXAM: 01/29/2020 1:34 PM COMPARISON: NONE CLINICAL HISTORY: r/o dvt. chest pain yesterday SIDE PERFORMED: Bilateral TECHNIQUE: The lower extremity deep venous system is examined utilizing real time linear array sonog marifer with graded compression, doppler sonography and color-flow sonography. VESSELS IMAGED: Common Femoral Vein Deep Femoral Vein Greater Saphenous Vein * Femoral Vein Popliteal Vein Small Saphenous Vein * Proximal Calf Veins (* superficial vessels) Right Leg: Negative for DVT Left Leg: Negative for DVT IMPRESSION: No evidence of deep vein thrombosis in both legs.
--- NOTE | 2020-01-29 16:02 | PN ---
PROGRESS NOTE Mrs. Camargo is a 54-year-old female who presented yesterday with symptoms of chest discomfort, right-sided at rest. She has no evidence of obstructive coronary artery disease by cardiac catheterization in March 2018. She is feeling better today. Her breathing is better. She has no further chest pain. She has no dizziness or palpitation. She denies any nausea. She had an echocardiogram that showed a preserved ventricular size and systolic function with mild mitral and tricuspid regurgitation. She continues to be at this time on aspirin once a day, Lipitor 40 mg daily, losartan 100 mg daily. PHYSICAL EXAMINATION: Blood pressure 124/70 with a heart rate in the 80s. LUNGS: Clear. HEART: Regular rate and rhythm S1, S2. No S3. No rub. ABDOMEN: Soft and nontender. EXTREMITIES: No edema. IMPRESSION: 1. Chest discomfort, atypical for ischemic heart disease. 2. History of hypertension. 3. Hyperlipidemia. RECOMMENDATION: From the cardiac standpoint she is stable. I see no evidence of active ischemic heart disease or symptoms of heart failure. I will see her on an as-needed basis and she can follow up as an outpatient with Dr. Steward. MMGLENNAL / SHANDA: [id number] /
[2020-01-29] MEDS ORDERED: HEPARIN SODIUM,PORCINE 5,000 UNIT/ML 1 ML VIAL SQ SCH (21:00)
[2020-01-29] MEDS ORDERED: FAMOTIDINE 20 MG/2 ML VIAL IV SCH (21:00)
--- NOTE | 2020-01-29 23:56 | P.HPIM ---
History of Present Illness Please consider this note as combined H&P and discharge summary Diagnoses: Atypical Chest pain, cardiac and pulmonary causes have been ruled out. And pain is completely resolved bradycardia on EKG, however clinically her heart rate is 82 currently Unlikely acute diastolic CHF as patient has normal pro BNP of 33 Hypertension Hyperlipidemia Hospital course: This is a pleasant 54 years old female with past medical history of hypertension and hyperlipidemia who presents because of chest pain. She woke up with chest pain at 4:00 in the morning, is mainly on the right side, was about 8/10 in severity but now is much resolved on down to 0/10, associated with some dyspnea however that resolved as well. Patient denies any headache, no change in urine or bowel habits. No leg pain or swelling. Patient states she is back to her normal states and she was asking to be discharged today. Vital signs stable. Labs including CBC, BMP, liver enzymes were unremarkable, d-dimer is elevated 0.99, troponin I negative 3. CTA of the chest showing no PE. Correlate for CHF. Chest x-ray: No acute process. Legal Technician. Moderate LVH. EKG showing marked sinus bradycardia at 44 Ultrasound of the lower extremity is checked and was negative for DVT Legal Technician evaluated the patient and recommended echocardiogram as above. Pulmonary embolism has been ruled out by negative CTPE. Problems and management plan were discussed with the patient and he verbalized understanding and acceptance Patient was found stable and can be discharged home however he needs follow-up as an outpatient. Patient was instructed to follow up with PCP Dr. Judith leach within one week and patient agrees. Also patient has an appointment with her workers' compensation commissioner Dr. Steward on March, patient was instructed to rescheduled in 2 w eeks and she agrees to call and make her own appointments as today is weakened Review of systems CONSTITUTIONAL: No fever, no malaise, no fatigue. HEENT: No recent visual problems or hearing problems. Denied any sore throat. CARDIOVASCULAR: No orthopnea, PND, no palpitations, no syncope. PULMONARY: No shortness of breath, no cough, no hemoptysis. GASTROINTESTINAL: No diarrhea, no nausea, no vomiting, no abdominal pain. Normoactive bowel sounds. NEUROLOGICAL: No headaches, no weakness, no numbness. HEMATOLOGICAL: Denies any bleeding or petechiae. GENITOURINARY: Denies any burning micturition, frequency, or urgency. MUSCULOSKELETAL/RHEUMATOLOGICAL: Denies any joint pain, swelling, or any muscle pain. ENDOCRINE: Denies any polyuria or polydipsia. Physical exam GENERAL: The patient is alert and oriented x3, not in any acute distress. Well developed, well nourished. HEENT: Pupils are round and equally reacting to light. EOMI. No scleral icterus. No conjunctival pallor. Normocephalic, atraumatic. No pharyngeal erythema. No thyromegaly. CARDIOVASCULAR: S1 and S2 present. No murmurs, rubs, or gallops. PULMONARY: Chest is clear to auscultation, no wheezing or crackles. ABDOMEN: Soft, nontender, nondistended, normoactive bowel sounds. No palpable organomegaly. MUSCULOSKELETAL: No joint swelling or deformity. EXTREMITIES: No cyanosis, clubbing, or pedal edema. NEUROLOGICAL: Gross neurological examination did not reveal any focal deficits. SKIN: No rashes. No petechiae Time spent more than 35 minutes Past Medical History Past Medical History: Hyperlipidemia, Hypertension Additional Past Medical History / Comment(s): Hx kidney stones History of Any Multi-Drug Resistant Organisms: None Reported Past Surgical History: Breast Surgery Additional Past Surgical History / Comment(s): Br Reduction; colonoscopy Past Anesthesia/Blood Transfusion Reactions: Postoperative Nausea & Vomiting (PONV) Past Psychological History: No Psychological Hx Reported Smoking Status: Never smoker Past Alcohol Use History: Occasional Past Drug Use History: None Reported - Past Family History Mother Family Medical History: Cancer Medications and Allergies Home Medications Medication Instructions Recorded Confirmed Type Losartan Potassium [Cozaar] 100 mg PO DAILY 11/02/15 01/28/20 History Multivitamins, Thera [Multivitamin 1 tab PO DAILY 11/02/15 01/28/20 History (formulary)] Calcium Carbonate [Calcium] 600 mg PO DAILY 03/20/18 01/28/20 History Aspirin EC [Ecotrin Low Dose] 81 mg PO DAILY #30 tablet. 03/23/18 01/28/20 Rx Atorvastatin [Lipitor] 40 mg PO HS 01/28/20 01/28/20 History Pantoprazole [Protonix] 40 mg PO AC-BRKFST #30 tablet. 01/29/20 Rx Allergies Allergy/AdvReac Type Severity Reaction Status Date / Time No Known Allergies Allergy Verified 01/28/20 13:07 Physical Exam Vitals: Vital Signs Temp Pulse Pulse Resp BP BP Pulse Ox 01/29/20 12:00 97.9 F 82 16 124/75 95 01/29/20 08:00 98.2 F 64 16 127/76 96 01/29/20 04:00 71 16 122/73 100 01/28/20 23:12 72 16 111/62 97 01/28/20 20:00 98.3 F 62 16 117/66 97 01/28/20 14:04 98.3 F 67 18 113/61 99 01/28/20 13:00 18 99 Intake and Output 01/28/20 01/29/20 01/29/20 22:59 06:59 14:59 Intake Total 230 Output Total 700 500 Balance 230 -700 -500 Intake: Oral 230 Output: Urine 700 500 Other: Weight 123.1 kg Results CBC & Chem 7: 01/28/20 08:49 01/28/20 08:49 Thrombosis Risk Factor Assmnt - Choose All That Apply Each Factor Represents 1 point: Age 41-60 years, Obesity (BMI >25) Thrombosis Risk Factor Assessment Total Risk Factor Score: 2 Thrombosis Risk Factor Assessment Level: Low Risk
== END 2020-01-29 16:39 | disposition home or self-care (01) ==
LOC: EC 08:05 → 3SCARD 10:43 → INTOOBSV 10:43 → UNDOADMIN 10:43 → 3SCARD 13:47 → UNDODISIN 01-29 16:39
PROVIDERS: ADMIT Internal Medicine; ATTEND Internal Medicine
DX: R07.89 Other chest pain (principal); R00.1 Bradycardia, unspecified; R11.10 Vomiting, unspecified; R06.00 Dyspnea, unspecified; E78.5 Hyperlipidemia, unspecified; I10 Essential (primary) hypertension; E66.9 Obesity, unspecified; Z68.41 Body mass index [BMI] 40.0-44.9, adult; Z79.899 Other long term (current) drug therapy; Z79.1 Long term (current) use of non-steroidal anti-inflammatories (NSAID); Z87.442 Personal history of urinary calculi; R79.89 Other specified abnormal findings of blood chemistry; G47.33 Obstructive sleep apnea (adult) (pediatric); Z79.82 Long term (current) use of aspirin; Z80.9 Family history of malignant neoplasm, unspecified
CPT/HCPCS: 96374; 96375; 99285; 36415; 93005; 93306; 85379; 83880; 80053; 83690; 83735; 84484; 85025; 85610; 85730; 71046; 93970; 71275; G0378 ×2; J2270; J1940; Q9967

== ENCOUNTER → 2020-02-07 | Outpatient (CLI) | payer BC ==
--- NOTE | 2020-02-08 07:57 | MM ---
Reason for exam: screening (asymptomatic). Last mammogram was performed 1 month ago. History: Patient is postmenopausal and is nulliparous. Family history of breast cancer in mother at age 58. Reductions of both breasts, July 2005. Took hormonal contraceptives for 1 year beginning at age 35. Physical Findings: A clinical breast exam by your physician is recommended on an annual basis and results should be correlated with mammographic findings. MG 3D Work Up W/Cad LT Spot compression CC, spot compression MLO, and LM view(s) were taken of the left breast. Prior study comparison: January 18, 2020, bilateral MG 3d screening mammo w/cad. December 27, 2018, bilateral MG 3d screening mammo w/cad. There is no discrete abnormality. These results were verbally communicated with the patient and result sheet given to the patient on 02/07/20. ASSESSMENT: Negative, BI-RAD 1 RECOMMENDATION: Return to routine screening mammogram schedule for both breasts.
== END | disposition home or self-care (01) ==
LOC: RADMAMWWP 14:40
PROVIDERS: ATTEND Family Medicine
DX: R92.8 Other abnormal and inconclusive findings on diagnostic imaging of breast (principal)
CPT/HCPCS: 77061; 77065

== ENCOUNTER → 2020-02-14 | Outpatient (CLI) | payer BC ==
--- NOTE | 2020-02-14 16:56 | CONS ---
CONSULTATION REASON FOR CONSULTATION: Sleep apnea. This patient is 54, morbidly obese, diagnosed having obstructive sleep apnea. Sleep study was done in [facility]. She had an AHI of 67. She was given BiPAP at a pressure of 16/11 cm of water. This was done by Dr. Noble Lamas, and the patient wants to transfer her care locally to [place]. Her treatment has been successful and the patient has been wearing her BiPAP every night. Based on the compliance data was collected over the past 30 days, the patient has been utilizing her machine more than 4 hours 100% of the time and she has been averaging around 8.1 hours of BiPAP use per night with a leak of 7 L/minute, tidal volume of 480 mL, respiratory rate of 13 and a minute ventilation of 6.4 L. Her AHI while on treatment is down to 0.3. She is using an AirFit F20 small-sized full-face mask. She is very comfortable with the treatment. She is refreshed, alert and awake during the day. She has gained around 20 pounds during the COVID pandemic. Her Bridgeview score is only 6. No cardiovascular complications. No chest pain. No shortness of breath. No hypersomnia or sleepiness. PAST MEDICAL HISTORY: Obstructive sleep apnea, hypertension, hyperlipidemia. PAST SURGICAL HISTORY: Past surgical history includes breast reduction surgery. DRUG ALLERGIES: NOT KNOWN. OUTPATIENT MEDICATION: Outpatient medication includes losartan 100 mg p.o. daily and Lipitor 20 mg p.o. daily. SOCIAL HISTORY: Nonsmoker. No history of alcoholism. No history of IV drugs. FAMILY HISTORY: Negative for sleep apnea. Positive for hypertension and heart disease. REVIEW OF SYSTEMS: Fourteen-point review of systems was done. The patient has no excessive fatigue or tiredness or sleepiness. No snoring for now while on the BiPAP. No choking or gasping for air. No nocturia. No sleepwalking or sleeptalking. She goes to bed around 9:30 p.m., wakes up around 4 to 5 a.m. in the morning. She is averaging around 7 to 8 hours of sleep. She takes a few minutes to fall asleep. She sleeps on her side and sometimes on her stomach. No dreams. No nightmares. No hallucinations. No cataplexy. PHYSICAL EXAMINATION: VITAL SIGNS: BP is 148/88, pulse 74, respirations 16, temperature 98.6, saturation 97% on room air. Height is 5 feet 6 inches, weight is 274, BMI 44.2. Neck size is 16-1/2 inches. GENERAL APPEARANCE: Obese, calm, comfortable. HEAD: Atraumatic, normocephalic. NECK: Supple. No JVD. No goiter or neck masses. Mallampati class IV. LUNGS: Clear to auscultation. HEART: Heart sounds are regular rate and rhythm. Normal S1, S2. No S3, S4. No murmurs. ABDOMEN: Soft, nontender. No organomegaly. EXTREMITIES: No edema. No cyanosis or clubbing. NEUROLOGIC: Alert and oriented x3. There is no focal neurological deficit. PSYCHIATRIC: Negative for anxiety or depression. IMPRESSION: 1. Severe obstructive sleep apnea. Study was conducted at [facility]. AHI was 67. Currently she is well treated with a BiPAP pressure of 16/11. Her only request is possibly reducing the BiPAP pressure for comfort reasons. 2. Hypersomnia, recovered. Bridgeview score is down to 6. 3. Obesity with a BMI of 44.2. 4. Hypertension. 5. Hyperlipidemia. PLAN: 1. Check the compliancy. 2. The data was satisfactory and the patient's AHI was down to 0.3 while on treatment without any evidence of any air leaks. No snoring. 3. I would recommend further weight loss. 4. I would recommend a trial of a lower BiPAP pressure, and I lowered the BiPAP pressure down to 14/10 cm of water. The patient will contact me back if her snoring and/or her apneas recur while on this current pressure. Otherwise, we will keep the same BiPAP setting, which will be at a pressure of 14/10. 5. I asked her to forward me the results of her sleep study that was done at [facility]. 6. Encourage further weight loss. 7. Tight control of cardiovascular risk factors. 8. See me back in a year's time in followup. MMGLENNAL / OLENAN: [id number] /
== END | disposition home or self-care (01) ==
LOC: SLEEP 15:39
PROVIDERS: ATTEND Internal Medicine Critical Care Medicine
DX: G47.33 Obstructive sleep apnea (adult) (pediatric) (principal); I10 Essential (primary) hypertension; E78.5 Hyperlipidemia, unspecified; G47.10 Hypersomnia, unspecified; E66.9 Obesity, unspecified; Z99.89 Dependence on other enabling machines and devices; Z68.41 Body mass index [BMI] 40.0-44.9, adult
CPT/HCPCS: 99211

== ENCOUNTER → 2021-04-30 | Outpatient (CLI) | payer BC ==
--- NOTE | 2021-04-30 18:51 | PN ---
PROGRESS NOTE SLEEP CENTER PROGRESS NOTE: Chio is 55, coming in for an annual check regarding obstructive sleep apnea. The patient has been very compliant her CPAP unit. Over the past one year the patient has gained around 6 pounds. Her baseline AHI was 67. The patient continues to use her BiPAP. Upon earlier evaluation, her BiPAP pressure was 16/12 and I lowered it to 14/10 cm of water. On today's evaluation, the patient's pressure seems to be appropriate and sufficient in regard to her ANUPAMA treatment. The patient has been averaging around 8.1 hours of BiPAP use per night, and her BiPAP use for more than 4 hours is 100%. She is achieving a tidal volume of 460 mL and her minute ventilation is around 13 L/minute. Her leak is on order of 6 L/minute. Her AHI is down to 0.7. She is using an AirFit F20 full-face mask, small size. Her treatment has been successful. Occasionally she is having dryness in her mouth, and I increased the humidity level up to 5. Temperature of tubing is 84 degrees Fahrenheit. Blood pressure is under good control. Delaware score is down to 7. She continues to benefit from the treatment. She is committed to CPAP therapy and she is also committed to weight loss. REVIEW OF SYSTEMS: Fourteen-point review of systems was done, and the positive findings are all mentioned above in history of present illness. PHYSICAL EXAMINATION: BP is 126/83, pulse 61, respirations 16, temperature 97.0, saturation 98% on room air. Height is 5 feet 6 inches. Weight is 280. BMI 45.1. Delaware Score is 7. GENERAL APPEARANCE: Obese, calm, comfortable. HEAD: Atraumatic, normocephalic. Neck is supple. No JVD. No goiter or neck masses. Mallampati class IV. LUNGS: Diminished; otherwise clear. Heart sounds are regular rate and rhythm. Normal S1, S2. No S3, S4. No murmurs. ABDOMEN: Soft, nontender. No organomegaly. EXTREMITIES: No edema. No cyanosis or clubbing. IMPRESSION: 1. Symptomatic severe ANUPAMA with an AHI of 67, currently on BiPAP at a pressure of 14/10 cm of water. 2. Hypersomnia, improved. Delaware score is down to 7. 3. Obesity with interval weight gain on the order of 6 pounds. BMI is up to 45. 4. Hypertension. 5. Hyperlipidemia. PLAN: 1. Continue BiPAP at the same level of pressure of 14/10. 2. Increase humidity to 5. 3. Continue the temperature of tubing at 84 degrees. 4. Utilize an AirFit F20 full-face mask, small size. 5. Treatment is successful. 6. Encourage weight loss. 7. See me back in a year's time in followup, earlier if needed. MMODL / IJN: [id number] /
== END ==
LOC: SLEEP 14:54
PROVIDERS: ATTEND Internal Medicine Critical Care Medicine
DX: G47.33 Obstructive sleep apnea (adult) (pediatric) (principal); E66.9 Obesity, unspecified; I10 Essential (primary) hypertension; E78.5 Hyperlipidemia, unspecified; Z68.42 Body mass index [BMI] 45.0-49.9, adult; Z99.89 Dependence on other enabling machines and devices

== ENCOUNTER → 2021-07-08 | Outpatient (CLI) | payer BC ==
--- NOTE | 2021-07-09 10:08 | MM ---
Reason for exam: screening (asymptomatic). Last mammogram was performed 1 year and 5 months ago. History: Patient is postmenopausal and is nulliparous. Family history of breast cancer in mother at age 58. Reductions of both breasts, July 2005. Took hormonal contraceptives for 1 year beginning at age 35. Physical Findings: A clinical breast exam by your physician is recommended on an annual basis and results should be correlated with mammographic findings. MG 3D Screening Mammo W/Cad Bilateral CC, MLO, and XCCL view(s) were taken. Prior study comparison: February 07, 2020, left breast MG 3d work up w/cad LT. January 18, 2020, bilateral MG 3d screening mammo w/cad. There are scattered fibroglandular densities. There is no discrete abnormality. No significant changes when compared with prior studies. ASSESSMENT: Negative, BI-RAD 1 RECOMMENDATION: Routine screening mammogram of both breasts in 1 year.
== END | disposition home or self-care (01) ==
LOC: RADMAMWWP 10:04
PROVIDERS: ATTEND Family Medicine
DX: Z12.31 Encounter for screening mammogram for malignant neoplasm of breast (principal); Z78.0 Asymptomatic menopausal state; Z80.3 Family history of malignant neoplasm of breast
CPT/HCPCS: 77063; 77067

== ENCOUNTER 2022-04-30 05:05 | Emergency (ER) | payer BC ==
[2022-04-30] MEDS ORDERED: ONDANSETRON 4 MG/2 ML VIAL IVP STA (05:06)
[2022-04-30] MEDS ORDERED: SODIUM CHLORIDE 0.9% 1,000 ML IV STA ×2 (05:06)
[2022-04-30] MEDS ORDERED: MORPHINE SULFATE 4 MG/ML SYRINGE IV STA (05:06)
[2022-04-30] MEDS ORDERED: KETOROLAC 15 MG/ML 1 ML VIAL IVP STA (05:06)
[2022-04-30 05:09] VITALS: TEMP 98.6
--- NOTE | 2022-04-30 05:30 | ED ---
Abdominal Pain HPI - General Chief Complaint: Abdominal Pain Stated Complaint: Abd Pain Time Seen by Provider: 04/30/22 05:06 Source: patient, RN notes reviewed, old records reviewed Mode of arrival: ambulatory Limitations: no limitations - History of Present Illness Initial Comments: This is a 56-year-old female to the emergency department for evaluation bowel pain epigastric pain chest pain. Just pain is upper abdominal with nausea vomiting no fevers. MD Complaint: abdominal pain, flank pain -: hour(s) Location: diffuse, epigastric Radiation: epigastric, R flank Migration to: epigastric, R flank Severity: severe Severity scale (1-10): 8 Quality: fullness, sharp Consistency: colicky Improves With: nothing Worsens With: nothing Associated Symptoms: nausea, vomiting Treatments Prior to Arrival: other (0) - Related Data Home Medications Medication Instructions Recorded Confirmed Losartan Potassium [Cozaar] 100 mg PO DAILY 11/02/15 01/28/20 Multivitamins, Thera [Multivitamin 1 tab PO DAILY 11/02/15 01/28/20 (formulary)] Calcium Carbonate [Calcium] 600 mg PO DAILY 03/20/18 01/28/20 Atorvastatin [Lipitor] 40 mg PO HS 01/28/20 01/28/20 Previous Rx's Medication Instructions Recorded Aspirin EC [Ecotrin Low Dose] 81 mg PO DAILY #30 tablet. 03/23/18 Pantoprazole [Protonix] 40 mg PO AC-BRKFST #30 tablet. 01/29/20 Allergies Allergy/AdvReac Type Severity Reaction Status Date / Time No Known Allergies Allergy Verified 04/30/22 05:09 Review of Systems ROS Statement: Those systems with pertinent positive or pertinent negative responses have been documented in the HPI. ROS Other: All systems not noted in ROS Statement are negative. Past Medical History Past Medical History: Hyperlipidemia, Hypertension Additional Past Medical History / Comment(s): Hx kidney stones History of Any Multi-Drug Resistant Organisms: None Reported Past Surgical History: Breast Surgery Additional Past Surgical History / Comment(s): Br Reduction; colonoscopy Past Anesthesia/Blood Transfusion Reactions: Postoperative Nausea & Vomiting (PONV) Past Psychological History: No Psychological Hx Reported Smoking Status: Never smoker Past Alcohol Use History: Occasional Past Drug Use History: None Reported - Past Family History Mother Family Medical History: Cancer General Exam Limitations: no limitations Course Vital Signs 04/30/22 04/30/22 05:07 07:33 Temperature 98.6 F Pulse Rate 51 L 60 Respiratory 18 15 Rate Blood Pressure 176/83 114/59 O2 Sat by Pulse 99 95 Oximetry - Reevaluation(s) Reevaluation #1: 04/30/22 Medical record is reviewed Patient informed results and questions answered Patient symptoms are improved here in the ER Medical Decision Making - Medical Decision Making 56 female presenting with abdominal pain epigastric pain chest pain biliary colic. - Lab Data Result diagrams: 04/30/22 05:25 04/30/22 05:25 Lab Results 04/30/22 04/30/22 04/30/22 Range/Units 05:25 05:25 05:25 WBC 9.8 (3.8-10.6) k/uL RBC 4.93 (3.80-5.40) m/uL Hgb 15.8 (11.4-16.0) gm/dL Hct 44.1 (34.0-46.0) % MCV 89.5 (80.0-100.0) fL MCH 32.0 (25.0-35.0) pg MCHC 35.7 (31.0-37.0) g/dL RDW 12.2 (11.5-15.5) % Plt Count 305 (150-450) k/uL MPV 7.9 Neutrophils % 56 % Lymphocytes % 32 % Monocytes % 7 % Eosinophils % 3 % Basophils % 1 % Neutrophils # 5.5 (1.3-7.7) k/uL Lymphocytes # 3.1 (1.0-4.8) k/uL Monocytes # 0.6 (0-1.0) k/uL Eosinophils # 0.2 (0-0.7) k/uL Basophils # 0.1 (0-0.2) k/uL Sodium 142 (137-145) mmol/L Potassium 4.0 (3.5-5.1) mmol/L Chloride 106 (98-107) mmol/L Carbon Dioxide 27 (22-30) mmol/L Anion Gap 9 mmol/L BUN 12 (7-17) mg/dL Creatinine 0.93 (0.52-1.04) mg/dL Est GFR (CKD-EPI)AfAm 80 (>60 ml/min/1.73 sqM) Est GFR (CKD-EPI)NonAf 69 (>60 ml/min/1.73 sqM) Glucose 137 H (74-99) mg/dL Plasma Lactic Acid Willem (0.7-2.0) mmol/L Calcium 9.6 (8.4-10.2) mg/dL Total Bilirubin 0.8 (0.2-1.3) mg/dL AST 32 (14-36) U/L ALT 42 H (4-34) U/L Alkaline Phosphatase 99 (38-126) U/L Troponin I <0.012 (0.000-0.034) ng/mL Total Protein 7.7 (6.3-8.2) g/dL Albumin 4.8 (3.5-5.0) g/dL Amylase 96 (30-110) U/L Lipase 252 (23-300) U/L 04/30/22 Range/Units 05:36 WBC (3.8-10.6) k/uL RBC (3.80-5.40) m/uL Hgb (11.4-16.0) gm/dL Hct (34.0-46.0) % MCV (80.0-100.0) fL MCH (25.0-35.0) pg MCHC (31.0-37.0) g/dL RDW (11.5-15.5) % Plt Count (150-450) k/uL MPV Neutrophils % % Lymphocytes % % Monocytes % % Eosinophils % % Basophils % % Neutrophils # (1.3-7.7) k/uL Lymphocytes # (1.0-4.8) k/uL Monocytes # (0-1.0) k/uL Eosinophils # (0-0.7) k/uL Basophils # (0-0.2) k/uL Sodium (137-145) mmol/L Potassium (3.5-5.1) mmol/L Chloride (98-107) mmol/L Carbon Dioxide (22-30) mmol/L Anion Gap mmol/L BUN (7-17) mg/dL Creatinine (0.52-1.04) mg/dL Est GFR (CKD-EPI)AfAm (>60 ml/min/1.73 sqM) Est GFR (CKD-EPI)NonAf (>60 ml/min/1.73 sqM) Glucose (74-99) mg/dL Plasma Lactic Acid Willem 2.0 (0.7-2.0) mmol/L Calcium (8.4-10.2) mg/dL Total Bilirubin (0.2-1.3) mg/dL AST (14-36) U/L ALT (4-34) U/L Alkaline Phosphatase (38-126) U/L Troponin I (0.000-0.034) ng/mL Total Protein (6.3-8.2) g/dL Albumin (3.5-5.0) g/dL Amylase (30-110) U/L Lipase (23-300) U/L - Radiology Data Radiology results: report reviewed (CT abdomen pelvis does show scattered gallbladder which could be advancing acute on chronic cholecystitis), image reviewed Disposition Clinical Impression: Abdominal pain, Biliary colic Disposition: HOME SELF-CARE Condition: Good Instructions (If sedation given, give patient instructions): Biliary Colic (ED) Is patient prescribed a controlled substance at d/c from ED?: No Referrals: Judith Shepard MD [Primary Care Provider] - 1-2 days Jaycob Shepard MD [Medical Doctor] - 1-2 days Time of Disposition: 06:55
[2022-04-30 05:35] LABS: Basophils # (A) 0.1 k/uL (0-0.2); Basophils % (A) 1 %; Eosinophils # (A) 0.2 k/uL (0-0.7); Eosinophils % (A) 3 %; HCT 44.1 % (34.0-46.0); HGB 15.8 gm/dL (11.4-16.0); Lymphocytes # (A) 3.1 k/uL (1.0-4.8); Lymphocytes % (A) 32 %; MCHC 35.7 g/dL (31.0-37.0); MCV 89.5 fL (80.0-100.0); Mean Platelet Volume 7.9; Monocytes # (A) 0.6 k/uL (0-1.0); Monocytes % (A) 7 %; Neutrophils # (A) 5.5 k/uL (1.3-7.7); Neutrophils % (A) 56 %; Platelet Count 305 k/uL (150-450); RBC 4.93 m/uL (3.80-5.40); RDW 12.2 % (11.5-15.5); WBC 9.8 k/uL (3.8-10.6)
[2022-04-30 05:57] LABS: Albumin 4.8 g/dL (3.5-5.0); Calcium 9.6 mg/dL (8.4-10.2); Total Bilirubin 0.8 mg/dL (0.2-1.3); Total Protein 7.7 g/dL (6.3-8.2)
--- NOTE | 2022-04-30 06:49 | CT ---
EXAMINATION TYPE: CT abdomen pelvis wo con DATE OF EXAM: 04/30/2022 COMPARISON: 04/15/2016 HISTORY: Generalized abdominal pain CT DLP: 1854.2 mGycm Automated exposure control for dose reduction was used. Images obtained from the diaphragm to the floor of the pelvis with no contrast. Lung bases are clear. Consolidation. No pleural effusion. Heart size is fairly normal. No pericardial effusion. There is a 7 mm gallstone at the gallbladder neck. Gallbladder has normal size. The bile d ucts are not dilated. Liver and spleen are intact. No pancreatic mass. The stomach is intact. There is no adrenal mass. Kidneys of normal size and contour. No hydronephrosis. Ureters are not dila raudel. Appendix is posterior and appears normal. There is no retroperitoneal adenopathy. The bladder di stends smoothly. Uterus is anteverted. No inguinal hernia. No evidence of pelvic mass. No free fluid in the pelvis. There is no mesenteric edema. No ascites or free air. No sign of a bowel obstruction. There are scatt ered large bowel diverticula. No diverticulitis. The lumbar vertebra have normal alignment. No compression fracture. The bony pelvis is intact. The hi p joints are intact. IMPRESSION: There is single calcified gallstone at the gallbladder neck that has migrated compared to old exam. G allstone is increased slightly in size. Gallbladder measures 4.3 cm in diameter and increased compare d to old exam. The possibility of cholecystitis should be considered.
[2022-04-30] MEDS ORDERED: IBUPROFEN 600 MG STARTER PACK 4 TAB BTL PO STA (06:51)
[2022-04-30] MEDS ORDERED: ONDANSETRON 4 MG ODT STARTER PACK 2 TAB BTL PO STA (06:51)
[2022-04-30] MEDS ORDERED: ACET/COD 300 MG/30 MG STARTER PACK 6 TAB BTL PO STA (06:51)
[2022-04-30 07:34] VITALS: BP 114/59; PULSE 60; RESP 15
== END 2022-04-30 07:34 | disposition home or self-care (01) ==
LOC: EC 05:05
DX: K80.50 Calculus of bile duct without cholangitis or cholecystitis without obstruction (principal); E78.5 Hyperlipidemia, unspecified; I10 Essential (primary) hypertension; Z79.82 Long term (current) use of aspirin
CPT/HCPCS: 36415; 80053; 82150; 83605; 83690; 84484; 85025; 74176; 99284; 96374; 96375 ×2; 96361 ×4; J2270; J2405; J1885; S0119; 96360

== ENCOUNTER → 2022-08-27 | Outpatient (CLI) | payer BC ==
--- NOTE | 2022-08-27 13:38 | MM ---
Reason for Exam: Screening (asymptomatic). Last mammogram was performed 1 year(s) and 2 month(s) ago. Patient History: Menarche at age 11. Patient has no children. Postmenopausal. Hormonal Contraceptives for 1 year from age 35 until age 36. 07/2005, Bilateral Reduction. Mother had breast cancer, age 58. Risk Values: Angela 5 year model risk: 2.6%. NCI Lifetime model risk: 14.6%. Prior Study Comparison: 01/18/2020 Bilateral Screening Mammogram, [facility]. 02/07/2020 Left Diagnostic Mammogram, [facility]. 07/08/2021 Bilateral Screening Mammogram, [facility]. Tissue Density: There are scattered fibroglandular densities. Analyzed By CAD. Overall Assessment: Benign, BI-RAD 2 Management: Screening Mammogram of both breasts in 1 year. Electronically signed and approved by: Maldonado Manley M.D.
== END | disposition home or self-care (01) ==
LOC: RADMAMWWP 09:22
PROVIDERS: ATTEND Family Medicine
DX: Z12.31 Encounter for screening mammogram for malignant neoplasm of breast (principal); Z78.0 Asymptomatic menopausal state; Z80.3 Family history of malignant neoplasm of breast
CPT/HCPCS: 77063; 77067

== ENCOUNTER → 2023-09-23 | Outpatient (CLI) | payer BC ==
--- NOTE | 2023-09-24 15:13 | MM ---
Reason for Exam: Screening (asymptomatic). Last mammogram was performed 1 year(s) and 1 month(s) ago. Patient History: Menarche at age 11. Patient has no children. Postmenopausal. Hormonal Contraceptives for 1 year from age 35 until age 36. 07/2005, Bilateral Reduction. Mother had breast cancer, age 58. Risk Values: Angela 5 year model risk: 2.7%. NCI Lifetime model risk: 14.2%. Prior Study Comparison: 02/07/2020 Left Diagnostic Mammogram, [facility]. 07/08/2021 Bilateral Screening Mammogram, [facility]. 08/27/2022 Bilateral MG 3D screening mammo w/cad, [facility]. Tissue Density: There are scattered areas of fibroglandular density. Findings: Analyzed By CAD. There is no suspicious group of microcalcifications or new suspicious mass in either breast. Overall Assessment: Benign, BI-RAD 2 Management: Screening Mammogram of both breasts in 1 year. . Patient should continue monthly self-breast exams. A clinical breast exam by your physician is recommended on an annual basis. This exam should not preclude additional follow-up of suspicious palpable abnormalities. Note on Angela scores and lifetime risk: 1. A Angela score greater than 3% is considered moderate risk. If this is the case, consider specialist referral to assess eligibility for a risk reducing agent. 2. If overall lifetime risk for the development of breast cancer is 20% or higher, the patient may qualify for future screening with alternating mammogram and breast MRI. Electronically signed and approved by: Rober Mckeon M.D. Radiologis
== END | disposition home or self-care (01) ==
LOC: RADMAMWWP 08:43
PROVIDERS: ATTEND Family Medicine
DX: Z12.31 Encounter for screening mammogram for malignant neoplasm of breast (principal); Z78.0 Asymptomatic menopausal state; Z80.3 Family history of malignant neoplasm of breast
CPT/HCPCS: 77063; 77067

== ENCOUNTER → 2024-10-28 | Outpatient (CLI) | payer BC ==
--- NOTE | 2024-10-28 12:12 | MM ---
Reason for Exam: Screening (asymptomatic). Last mammogram was performed 1 year(s) and 1 month(s) ago. Indicated Problems: Pain of the right side (Global) for 5 Month(s). Patient History: Menarche at age 11. Patient has no children. Postmenopausal. Hormonal Contraceptives for 1 year from age 35 until age 36. 07/2005, Bilateral Reduction. Mother had breast cancer, age 58. Risk Values: Angela 5 year model risk: 2.8%. NCI Lifetime model risk: 13.9%. Prior Study Comparison: 07/08/2021 Bilateral Screening Mammogram, [facility]. 08/27/2022 Bilateral MG 3D screening mammo w/cad, [facility]. 09/23/2023 Bilateral MG 3D screening mammo w/cad, [facility]. Tissue Density: There are scattered areas of fibroglandular density. Findings: Analyzed By CAD. There are scattered tiny benign appearing round calcifications bilaterally redemonstrated. There is no suspicious group of microcalcifications or new suspicious mass in either breast. Overall Assessment: Benign, BI-RAD 2 Management: Screening Mammogram of both breasts in 1 year. . Patient should continue monthly self-breast exams. A clinical breast exam by your physician is recommended on an annual basis. This exam should not preclude additional follow-up of suspicious palpable abnormalities. Note on Angela scores and lifetime risk: 1. A Angela score greater than 3% is considered moderate risk. If this is the case, consider specialist referral to assess eligibility for a risk reducing agent. 2. If overall lifetime risk for the development of breast cancer is 20% or higher, the patient may qualify for future screening with alternating mammogram and breast MRI. [facility], , 10/28/2024 12:09 PM. Electronically signed and approved by: Maldonado Manley M.D.
== END | disposition home or self-care (01) ==
LOC: RADMAMWWP 11:10
PROVIDERS: ATTEND Family Medicine
DX: Z12.31 Encounter for screening mammogram for malignant neoplasm of breast (principal); R92.323 Mammographic fibroglandular density, bilateral breasts; R92.1 Mammographic calcification found on diagnostic imaging of breast; Z80.3 Family history of malignant neoplasm of breast; Z78.0 Asymptomatic menopausal state; Z92.0 Personal history of contraception
CPT/HCPCS: 77063; 77067